=== PATIENT | female | born 1965 | race Caucasian/White ===

== ENCOUNTER 2019-06-23 10:50 | Outpatient (CLI) | payer OTHER, SELFPAY ==
--- NOTE | ~2019-06-23 | XR_ITS ---
XR chest 2V DATE: 06/23/2019 11:14 INDICATION: Cough for one week TECHNIQUE: PA and lateral views COMPARISON: 06/20/2011 PA and lateral chest FINDINGS: Mild bilateral hyperinflation. No pulmonary infiltrate or consolidation, pleural effusion o r pulmonary vascular congestion or pneumothorax is detected. Normal heart size. No hilar or mediastinal enlargement. Included skeletal structures are unremarkable. IMPRESSION: No active cardiopulmonary disease Reviewed, dictated and finalized at location B. SUPERVISOR
== END 2019-06-23 10:51 | disposition home or self-care (01) ==
LOC: ANHIMG 10:56
PROVIDERS: PCP Internal Medicine; Visit Provider Nurse Practitioner
DX: R05 Cough (principal)
CPT/HCPCS: 71046

== ENCOUNTER 2019-12-15 12:00 | Outpatient (CLI) | payer OTHER, SELFPAY ==
[2019-12-15 13:15] VITALS: PULSE 80; O2SAT 93
[2019-12-15 13:20] VITALS: PULSE 109; O2SAT 87
[2019-12-15 13:25] VITALS: PULSE 110; O2SAT 88
[2019-12-15 13:30] VITALS: PULSE 112; O2SAT 91
[2019-12-15 13:45] VITALS: PULSE 82; O2SAT 93
--- NOTE | 2019-12-15 13:50 | HOMEO2EVAL ---
Home Oxygen Evaluation RC: Home Oxygen (O2) Evaluation Start: 12/15/19 13:44 Freq: ONCE Status: Active Protocol: RPE Activity Type Activity Date Activity User E-Sign Co-Sign Detail Recorded Client Recorded Date Recorded By Document 12/15/19 13:15 [email or web address] [email or web address] 12/15/19 13:49 DJO Document 12/15/19 13:20 [email or web address] [email or web address] 12/15/19 13:49 DJO Document 12/15/19 13:25 [email or web address] [email or web address] 12/15/19 13:49 DJO Document 12/15/19 13:30 [email or web address] [email or web address] 12/15/19 13:49 DJO Document 12/15/19 13:45 [email or web address] [email or web address] 12/15/19 13:49 DJO 12/15/19 12/15/19 12/15/19 13:15 13:20 13:25 Home O2 Evaluation Test Phase Resting Exercise Exercise Oxygen Delivery Room Air Room Air Nasal Cannula Oxygen Flow Rate (L/min) 1 Pulse Oximetry (90-100 %) 93 87 L 88 L Pulse Rate (60-100 beats/min) 80 109 H 110 H Activity Tolerance Ambulation Distance (feet) Treatment Charges O2 Evaluation 12/15/19 12/15/19 13:30 13:45 Home O2 Evaluation Test Phase Exercise Resting Oxygen Delivery Nasal Cannula Room Air Oxygen Flow Rate (L/min) 2 Pulse Oximetry (90-100 %) 91 93 Pulse Rate (60-100 beats/min) 112 H 82 Activity Tolerance Good Ambulation Distance (feet) 1,000 Treatment Charges
--- NOTE | 2019-12-19 23:43 | P.PCNPFT_ITS ---
PFT Interpretation PFT Interpretation: DOS: 12/15/2019 REQUESTING: Ale Drummond NP REASON FOR TESTING: COPD PULMONARY FUNCTION TESTS Results are reproducible and reliable. Spirometry: FEV1 48% severely decreased, 1.33 L. FVC 70%, mildly decreased. FEV1% is reduced consistent with airflow obstruction. There is a non- statistically significant increase in flows after bronchodilator. Lung volumes: TLC 106%, normal. RV 164%, severely increased consistent with air trapping. Increased airway resistance 196%. Diffusion: DLCO moderately reduced 47%. Flow volume loop: Scooping of the expiratory limb. IMPRESSION: Severe obstructive ventilatory impairment with severe air trapping moderate diffusion impairment. Lack of response to bronchodilators should not preclude use if clinically indicated Ann Marie Neri MD
== END 2019-12-15 12:01 | disposition home or self-care (01) ==
PROVIDERS: PCP Internal Medicine; Visit Provider Nurse Practitioner
DX: J44.9 Chronic obstructive pulmonary disease, unspecified (principal); R94.2 Abnormal results of pulmonary function studies
CPT/HCPCS: 94060; 94618; 94726; 94729

== ENCOUNTER 2020-03-31 06:26 | Outpatient (CLI) | payer OTHER, SELFPAY ==
--- NOTE | 2020-04-28 03:42 | WPDHOMESLEEP ---
Sleep Study - Home Unattended Date of Study: 03/31/20 Ordering Provider: NICOLASA Dimas- Interpreting Physician: Ann Marie Neri MD Home Sleep Study Type: Apnea Link Air Height: 1.73 m Weight: 95.254 kg Body Mass Index: 31.9 Neck Circumference (inches): 14.5 [place]: 3 Reason for Sleep Study Difficulty falling asleep and waking during the night Sleep History Amada Hernandez is a 54 year old female who has difficulty falling asleep at night with numerous episodes of waking at night. She uses oxygen with sleep. 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 She snores loudly, and people constantly complain about it. She rarely wakes at night with heartburn, belching or coughing. She rarely awakens from feeling short of breath. She constantly has difficulty sleeping when she has a cold. She does not gasp for breath at night. She frequently has been told by others that she has breathing problems during sleep. She rarely sweats excessively at night. She occasionally notices her heart pounding or beating irregularly at night. She rarely falls asleep during the day, never involuntarily and never while driving. She does not have loss of muscle tone with strong emotion. She occasionally has daytime difficulties due to excessive sleepiness. She rarely feels paralyzed on waking or falling asleep. She rarely has vivid dreamlike scenes upon awakening or falling asleep. She is not afraid to go to sleep. She does not have nightmares. She occasionally remembers her dreams. She frequently has racing thoughts or mine. She rarely feels sad depressed or anxious. She occasionally has muscular tension. She rarely notices parts of her body jerking. She occasionally kicks at night. She constantly has crawling and aching feelings in her legs at night as well as leg pain during the night. She does not wake up with morning jaw pain. She does not grind her teeth at night. She occasionally has bothered by pain during the day and is awakened by pain at night. She constantly wakes up feeling stiff in the morning. She frequently wakes with sore achy muscles and pain in the neck and spine. She has headaches, palpitations, and memory problems. Normal bedtime is 12:00 midnight -1:00 a.m.. It takes 1 or 2 hours to fall asleep. She typically wakes 3 times during the night. 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 When she wakes up, she looks at the clock and goes back to sleep. She wakes at 10:00 in the morning. She estimates 6-7 hours of sleep at night. She denies taking naps. She is drowsy in the morning and she does not awaken feeling refreshed. Habits: Tobacco 1 ppd x 32 years, quit 2018. Caffeine 2 or 3 coffee per day. No alcohol or recreational drugs. [facility] Past Medical History Medical History (Updated 04/28/20 @ 04:29 by Ann Marie Neri MD) Allergic rhinitis Fmgkq-2-kvwvdvvvruj deficiency 06/23/2019 Arthritis R rotator cuff Chronic GERD COPD (chronic obstructive pulmonary disease) MAYA (dyspnea on exertion) Fatigue History of tobacco abuse Hypercholesterolemia Oxygen dependent with exertion and sleep Torn meniscus Surgical History Surgical History (Updated 04/28/20 @ 03:51 by Ann Marie Neri MD) History of carpal tunnel surgery History of orthopedic surgery History of tonsillectomy S/P hardware removal knee Status post surgical removal of both fallopian tubes Social History Social History (Updated 04/28/20 @ 03:55 by Ann Marie Neri MD) Smoking packs per day: 1 Smoking cigarettes per day: 20.0 Years smoked: 32 Smoking pack-years: 32.00 Smoking status: Former smoker Smoking end date: 06/25/17 Alcohol intake: never Substance use: never Living arrangements: with family Additional occupation/education comments: disabled [employer]
[2020-04-28 04:29] VITALS: BMI 31.9
== END 2020-03-31 06:27 | disposition home or self-care (01) ==
LOC: ANHCSM 06:26
PROVIDERS: PCP Internal Medicine; Visit Provider Nurse Practitioner
DX: G47.33 Obstructive sleep apnea (adult) (pediatric) (principal)
CPT/HCPCS: 95806

== ENCOUNTER → 2020-09-25 02:26 | Outpatient (CLI) | payer OTHER, SELFPAY ==
[2020-09-25 19:19] LABS: SARS-CoV-2 RNA PCR Negative
== END ==
PROVIDERS: PCP Internal Medicine; Visit Provider Internal Medicine Critical Care Medicine
DX: Z20.822 Contact with and (suspected) exposure to COVID-19 (principal)
CPT/HCPCS: C9803; U0003; U0005

== ENCOUNTER 2020-09-27 08:47 | Outpatient (CLI) | payer OTHER, SELFPAY ==
--- NOTE | 2020-10-18 19:14 | WPDSLEEPSTUD ---
Sleep Study Date of Study: 09/27/20 Ordering Provider: Ale Drummond, VAULT CLERK- Interpreting Physician: Ann Marie Neri MD Sleep Study Type: CPAP Titration Height: 1.73 m Weight: 96.162 kg Body Mass Index: 32.2 Neck Circumference (inches): 17 [place]: 2 Reason for Sleep Study Home sleep test 03/31/2020; mild obstructive sleep apnea, AHI 9, profound desaturation to 77% and 87 minutes, 16% of the test with saturation below 88%, mean saturation 90%. It is not clear if she wore oxygen during the test. The patient estimates 7-8 hours of sleep at night, however the recording time was 9 hours 29 minutes, longer than her normal sleep time. She now presents for CPAP titration. She has COPD and uses O2 at night. Sleep History Amada Hernandez is a 54 year old female who has difficulty falling asleep at night with numerous episodes of waking at night. She uses oxygen with sleep. 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 She snores loudly, and people constantly complain about it. She rarely wakes at night with heartburn, belching or coughing. She rarely awakens from feeling short of breath. She constantly has difficulty sleeping when she has a cold. She does not gasp for breath at night. She frequently has been told by others that she has breathing problems during sleep. She rarely sweats excessively at night. She occasionally notices her heart pounding or beating irregularly at night. She rarely falls asleep during the day, never involuntarily and never while driving. She does not have loss of muscle tone with strong emotion. She occasionally has daytime difficulties due to excessive sleepiness. She rarely feels paralyzed on waking or falling asleep. She rarely has vivid dreamlike scenes upon awakening or falling asleep. She is not afraid to go to sleep. She does not have nightmares. She occasionally remembers her dreams. She frequently has racing thoughts or mine. She rarely feels sad depressed or anxious. She occasionally has muscular tension. She rarely notices parts of her body jerking. She occasionally kicks at night. She constantly has crawling and aching feelings in her legs at night as well as leg pain during the night. She does not wake up with morning jaw pain. She does not grind her teeth at night. She occasionally has bothered by pain during the day and is awakened by pain at night. She constantly wakes up feeling stiff in the morning. She frequently wakes with sore achy muscles and pain in the neck and spine. She has headaches, palpitations, and memory problems. Normal bedtime is 12:00 midnight -1:00 a.m.. It takes 1 or 2 hours to fall asleep. She typically wakes 3 times during the night. This occurs in the middle of the night and environmental solutions engineer hours. When she wakes up, she looks at the clock and goes back to sleep. She wakes at 10:00 in the morning. She estimates 6-7 hours of sleep at night. She denies taking naps. She is drowsy in the morning and she does not awaken feeling refreshed. Habits: Tobacco 1 ppd x 32 years, quit 2017. Caffeine 2 or 3 coffee per day. No alcohol or recreational drugs. [facility] Past Medical History Medical History Allergic rhinitis Vgyqc-3-nlzsjmeothh deficiency 06/23/2019 Arthritis R rotator cuff Chronic GERD COPD (chronic obstructive pulmonary disease) MAYA (dyspnea on exertion) Fatigue History of tobacco abuse Hypercholesterolemia Oxygen dependent with exertion and sleep Torn meniscus Surgical History Surgical History History of carpal tunnel surgery History of orthopedic surgery History of tonsillectomy S/P hardware removal knee Status post surgical removal of both fallopian tubes Social History Social History
[2020-10-18 19:41] VITALS: BMI 32.2
== END 2020-09-27 08:48 | disposition home or self-care (01) ==
LOC: ANHCSM 08:52
PROVIDERS: PCP Internal Medicine; Visit Provider Nurse Practitioner
DX: G47.33 Obstructive sleep apnea (adult) (pediatric) (principal)
CPT/HCPCS: 95811

== ENCOUNTER 2021-03-08 09:01 | Outpatient (CLI) | payer OTHER, SELFPAY ==
--- NOTE | 2021-03-09 13:42 | WPDPFTINT ---
PFT Procedure Performed PFT Procedure Performed Spirometry with Pre/Post Bronchodilator Plethysmography (Lung Vol) Diffusing Cap (DLCO) Flow Vol Loop PFT Interpretation This is a pulmonary function test with pre and post-bronchodilator spirometry, plethysmography and diffusing capacity. The test was performed and results interpreted in accordance with the 2019 and 2005 ATS/ERS Task Force guidelines respectively using the Global Lung Function Initiative-2012 reference equations. Patient demonstrated good effort and cooperation. Reproducibility criteria were met. The quality of the pre bronchodilator spirometry maneuver was Grade A and post bronchodilator spirometry maneuver was Grade A. Findings: Spirometry: There is decreased maximal expiratory airflow at all lung volumes with concave expiratory flow tracing. Contour the inspiratory flow tracing is normal. The pre bronchodilator FVC is 2.91 L, 77% predicted. The pre bronchodilator FEV1 is 1.43 L, 48% predicted. The FEV1: FVC ratio is 49%. The post bronchodilator FVC is 2.89 L, representing 1% decrease. The post bronchodilator FEV1 is 1.55 L, representing a 9% increase. Plethysmography: The total lung capacity is 5.90 L, 104% predicted. The functional residual capacity is 3.64 L, 113% predicted. The residual volume is 2.98 L, 141% predicted. Diffusing capacity: The absolute diffusion capacity is 11.2, 47% predicted. The diffusing capacity corrected for alveolar volume is 2.92, 68% predicted. When compared to previous pulmonary function test on 12/15/2019 the post bronchodilator FEV1 is unchanged from 2.65 L to 2.89 L. The post bronchodilator FEV1 is unchanged from 1.38 L to 1.55 L. The total lung capacity is unchanged from 6.11 L to 5.90 L. The functional residual capacity is unchanged from 3.63 L to 3.64 L. The residual volume has decreased from 3.48 L to 2.98 L. The absolute diffusion capacity is unchanged from 12.0 to 11.2, the diffusing capacity corrected for alveolar volume is unchanged from 2.92 to 2.92. Impression: There is a severe obstructive abnormality without significant improvement after inhaling a single dose of albuterol. The increase in residual volume is consistent with air trapping from an obstructive abnormality. The absolute diffusing capacity is moderately decreased and remains mildly decreased when corrected for alveolar volume. When compared to the previous pulmonary function test on 12/15/2019 there has been A greater than anticipated time dependent decrease in residual volume and no change in the post bronchodilator FVC, post bronchodilator FEV1, total lung capacity, reduced functional residual capacity, absolute diffusion capacity or diffusing capacity corrected for alveolar volume. Clinical correlation is recommended.
== END 2021-03-08 09:02 | disposition home or self-care (01) ==
PROVIDERS: PCP Internal Medicine; Visit Provider Nurse Practitioner
DX: J44.9 Chronic obstructive pulmonary disease, unspecified (principal)
CPT/HCPCS: 94060; 94726; 94729

== ENCOUNTER 2021-07-02 14:00 | Outpatient (CLI) | payer OTHER, SELFPAY ==
--- NOTE | ~2021-07-02 | CT_ITS ---
EXAMINATION: CT lung screening DATE: 07/02/2021 14:17 INDICATION: Personal history of nicotine dependence, prior smoker with 30 to pack year history TECHNIQUE: Computed tomography (CT) of the chest was performed without intravenous contrast. The dose -length product (DLP) was 153.60 mGy-cm. 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 COMPARISON: None FINDINGS: There is severe upper lobe predominant emphysema. No suspicious pulmonary nodules are ident ified. The lungs are free of acute opacities. There is no pleural effusion or pneumothorax. No pathol ogically enlarged thoracic lymph nodes are identified. The heart size is normal. IMPRESSION: 1. Lung-RADS category 1: Negative. Continue annual screening with noncontrast low-dose chest CT in 12 months. Reviewed, dictated and finalized at location A. GREASER IMPRESSION: 1. Lung-RADS category 1: Negative. Continue annual screening with noncontrast l ow-dose chest CT in 12 months.
== END 2021-07-02 14:01 | disposition home or self-care (01) ==
LOC: ANHIMG 14:04
PROVIDERS: PCP Internal Medicine; Visit Provider Nurse Practitioner
DX: Z12.2 Encounter for screening for malignant neoplasm of respiratory organs (principal); Z87.891 Personal history of nicotine dependence
CPT/HCPCS: 71271

== ENCOUNTER 2021-10-20 17:55 | Emergency (ER) | payer OTHER, SELFPAY ==
[2021-10-20 18:01] VITALS: BP 120/66; PULSE 84; RESP 20; TEMP 36.6; O2SAT 99
--- NOTE | 2021-10-20 18:15 | ED.GENADULT ---
HPI - General Adult General Chief complaint: Skin/Abscess/Foreign Body Stated complaint: SWOLLEN LYMPH NODE Source: patient Mode of arrival: ambulatory Limitations: no limitations History of Present Illness HPI narrative: Patient presents for evaluation of redness, itching and irritation to the left side of her neck for the past three days. She does not remember experiencing an insect bite. No known precipitating event. No fever, chills, nausea, vomiting, drainage from the area. She is not diabetic. She tried applying some alcohol to the area without improvement in her symptoms thereafter. No additional complaints or concerns. Related Data Home Medications Medication Instructions Recorded Confirmed albuterol sulfate 90 mcg/actuation inh inhalation 10/20/21 aerosol inhaler atorvastatin 20 mg tablet tablet 10/20/21 fluticasone fur. 100 mcg-umeclid ea inhalation 10/20/21 62.5 mcg-vilant 25 mcg inhalat.powder (Trelegy Ellipta) nicotine (polacrilex) 4 mg buccal ea 10/20/21 mini lozenge omeprazole 40 mg capsule,delayed cap 10/20/21 release Allergies Allergy/AdvReac Type Severity Reaction Status Date / Time cephalexin AdvReac Nausea and Verified 10/20/21 18:25 Vomiting Review of Systems Review of Systems: CONSTITUTIONAL: Denies fever, chills, or sweats. EYES: Denies visual changes, redness, or discharge. ENT: Denies rhinorrhea, congestion, sore throat, or otalgia. CARDIOVASCULAR: Denies chest pain, palpitations, or edema. RESPIRATORY: Denies cough or dyspnea. GASTROINTESTINAL: Denies abdominal pain, nausea, vomiting, or diarrhea. GENITOURINARY: Denies dysuria or hematuria. SKIN: Reports area of redness, irritation and itching to left lateral neck. MUSCULOSKELETAL: Denies back pain, joint pain, or myalgia. NEUROLOGIC: Denies headache, numbness, dizziness, or weakness. PSYCHIATRIC: Denies anxiety or depression. [facility] Past Medical History Medical History Allergic rhinitis Egzia-0-kdfcwulieqk deficiency 06/23/2019 Arthritis R rotator cuff Chronic GERD COPD (chronic obstructive pulmonary disease) MAYA (dyspnea on exertion) Fatigue History of tobacco abuse Hypercholesterolemia Oxygen dependent with exertion and sleep Torn meniscus Surgical History Surgical History History of carpal tunnel surgery History of orthopedic surgery History of tonsillectomy S/P hardware removal knee Status post surgical removal of both fallopian tubes Family History Family History Father Bubpf-4-epdgssbkwfb deficiency Social History Social History (Updated 10/20/21 @ 18:27 by NICOLASA Montiel, ) Smoking packs per day: 1 Smoking cigarettes per day: 20.0 Years smoked: 32 Smoking pack-years: 32.00 Smoking status: Former smoker Smoking end date: 06/25/17 Alcohol intake: never Substance use: never Living arrangements: with family Additional occupation/education comments: disabled Gender identity (if verbalized by the patient): Male Sexual Orientation (if Verbalized by the Patient): Straight or Heterosexual Spiritual care concerns: No Exam Narrative: GENERAL: Well-appearing, well-nourished, and in no acute distress. HEAD: Normocephalic, atraumatic. EYES: PERRLA and EOMI. ENT: Nares clear, no rhinorrhea or epistaxis. Mucous membranes moist. Oropharynx without tonsillar hypertrophy exudate or other lesions. Bilateral TMs pearly clemente nonbulging NECK: Supple. No adenopathy or masses. No carotid bruits or JVD CHEST: Clear to auscultation. No respiratory distress. No wheezes rales or rhonchi. O2 at 2 L NC HEART: Regular rate and rhythm. No murmur heard. Normal peripheral pulses. ABDOMEN: Soft, nontender, nondistended, normal active bowel sounds. EXTREMITIES: Normal range of motion. No ed
== END 2021-10-20 18:24 | disposition home or self-care (01) ==
PROVIDERS: Emergency Provider Nurse Practitioner; PCP Internal Medicine
DX: L30.9 Dermatitis, unspecified (principal); Z87.891 Personal history of nicotine dependence; M19.90 Unspecified osteoarthritis, unspecified site; K21.9 Gastro-esophageal reflux disease without esophagitis; J44.9 Chronic obstructive pulmonary disease, unspecified; E78.00 Pure hypercholesterolemia, unspecified
CPT/HCPCS: 99213; G0463

== ENCOUNTER 2021-12-13 16:14 | Emergency (ER) | payer OTHER, SELFPAY ==
--- NOTE | ~2021-12-13 | XR_ITS ---
XR hip RT 2V w AP pelvis DATE: 12/13/2021 16:54 INDICATION: Right hip pain, subluxation, with relocation TECHNIQUE: AP pelvis. AP and lateral views of right hip COMPARISON: None FINDINGS: There is levoscoliosis of the lumbar spine. The pubic symphysis and sacroiliac joints are intact. No pelvic fracture or bone destruction is detec eileen. Hip joint spaces are symmetric and relatively well preserved. There is mild right hip osteoarthritis. No fracture or dislocation, avascular necrosis or bone destruction of the right hip is detected. IMPRESSION: Mild right hip osteoarthritis Reviewed, dictated and finalized at location B.
[2021-12-13 16:18] VITALS: BP 145/71; PULSE 90; RESP 18; TEMP 36.3; O2SAT 97
--- NOTE | 2021-12-13 17:00 | ED.LOWEXIN ---
HPI - Extremity Injury (Lower) General Chief Complaint: Extremity Injury, Lower Stated Complaint: right hip pain - possible spontaneous dislocation? Time Seen by Provider: 12/13/21 16:22 History of Present Illness HPI Narrative: Patient is a 56-year-old female who presents ER with right hip pain. Yesterday patient went to stretch her leg while she was in a seated position she informed external rotation of the hip then extended out at the knee. She had sudden onset pain and could not get up without assistance. She then tried to ambulate to a couch with her 's help and she felt 2 pops and her pain went away. No numbness or tingling associated with it. No additional trauma. Has been able to ambulate without issue. Related Data Home Medications Medication Instructions Recorded Confirmed albuterol sulfate 90 mcg/actuation 2 inh inhalation PRN PRN Shortness 10/20/21 10/20/21 aerosol inhaler Of Breath atorvastatin 20 mg tablet 1 tablet PO DAILY 10/20/21 10/20/21 fluticasone fur. 100 mcg-umeclid 1 ea inhalation BID 10/20/21 10/20/21 62.5 mcg-vilant 25 mcg inhalat.powder (Trelegy Ellipta) nicotine (polacrilex) 4 mg buccal 1 ea PO Q6H 10/20/21 10/20/21 mini lozenge omeprazole 40 mg capsule,delayed 1 cap PO DAILY 10/20/21 10/20/21 release Allergies Allergy/AdvReac Type Severity Reaction Status Date / Time cephalexin AdvReac Nausea and Verified 12/13/21 16:16 Vomiting Review of Systems Review of Systems: All systems reviewed & are unremarkable except as noted in HPI and below Musculoskeletal: Musculoskeletal: Denies back pain, Reports arthralgias, Denies joint swelling and Denies muscle cramps Neurologic: Denies focal weakness and Denies numbness PMFSH Past Medical History Medical History Allergic rhinitis Byrow-3-lxnvnenwwwh deficiency 06/23/2019 Arthritis R rotator cuff Chronic GERD COPD (chronic obstructive pulmonary disease) MAYA (dyspnea on exertion) Fatigue History of tobacco abuse Hypercholesterolemia Oxygen dependent with exertion and sleep Torn meniscus Surgical History Surgical History History of carpal tunnel surgery History of orthopedic surgery History of tonsillectomy S/P hardware removal knee Status post surgical removal of both fallopian tubes Family History Family History Father Osbal-9-ydxkjpqvnia deficiency Social History Social History (Updated 10/20/21 @ 18:27 by NICOLASA Montiel, ) Smoking packs per day: 1 Smoking cigarettes per day: 20.0 Years smoked: 32 Smoking pack-years: 32.00 Smoking status: Former smoker Smoking end date: 06/25/17 Alcohol intake: never Substance use: never Additional occupation/education comments: disabled Gender identity (if verbalized by the patient): Male Sexual Orientation (if Verbalized by the Patient): Straight or Heterosexual Spiritual care concerns: No Exam Narrative: GENERAL: Well-appearing, well-nourished, and in no acute distress. HEAD: Normocephalic, atraumatic. EXTREMITIES: Right hip with normal range of motion and no crepitus/clicking palpated. Tender at the right greater trochanter. Normal range of motion and no tenderness of the left hip. NEURO: Alert and oriented x3. PSYCH: Normal mood and affect. Course Course Emergency Course: Patient resting comfortably. Discussed with Dr. Ledesma who believes patient likely had discomfort related to a labral tear given appearance of hip on x-ray. Patient educated on this and will be discharged with anti-inflammatories. Vital Signs Vital signs: Vital Signs Temperature 97.3 F L 12/13/21 16:18 Pulse Rate 90 12/13/21 16:18 Respiratory Rate 18 12/13/21 16:18 Blood Pressure 145/71 H 12/13/21 16:18 Pulse Oximetry 97 12/13/21 16:18 Oxygen Delivery
== END 2021-12-13 18:04 | disposition home or self-care (01) ==
LOC: ANHED 17:24
PROVIDERS: Emergency Provider Emergency Medicine; PCP Internal Medicine
DX: S73.101A Unspecified sprain of right hip, initial encounter (principal); J44.9 Chronic obstructive pulmonary disease, unspecified; E78.00 Pure hypercholesterolemia, unspecified; K21.9 Gastro-esophageal reflux disease without esophagitis; M19.011 Primary osteoarthritis, right shoulder; Z90.79 Acquired absence of other genital organ(s); Z87.891 Personal history of nicotine dependence; M16.11 Unilateral primary osteoarthritis, right hip; X50.9XXA Other and unspecified overexertion or strenuous movements or postures, initial encounter
CPT/HCPCS: 73502; 99283

== ENCOUNTER 2025-05-04 17:06 | Emergency (ER) | payer MEDICARE, OTHER, SELFPAY ==
--- NOTE | ~2025-05-04 | XR_ITS ---
[id number] INDICATION: pain COMPARISON: None FINDINGS: 2 views of the left knee demonstrate no acute fracture or dislocation. Large suprapatellar joint effusion is noted. IMPRESSION: No acute fracture or dislocation. There is a large suprapatellar joint effusion. Reviewed, dictated and finalized at location S. PROCESSING SUPERVISOR
[2025-05-04 17:24] VITALS: BP 112/69; PULSE 110; RESP 16; TEMP 36.3; O2SAT 96
--- OUTSIDE RECORDS SUMMARY | 2025-05-04 18:29 | XMS_ITS | Encounter Summary ---
Author Organization [facility] Address [address] [place] [address] Care Team Providers Care [employer] Testing [employer] Leader Name Role Phone Matthew Perkins MD Primary Care Provider [phone] Encounter Details Date Type Department Care Team (Latest Contact Info) Description 12/06/2004 Outpatient Historical [facility] Brandan Sherwood MD [address] [place] [id number] SUPERVIS OTHER NORMAL PREG (Primary Dx) Social History Tobacco Use Types Packs/Day Years Used Date Smoking Tobacco: Never Assessed Comments Unknown Sex and Gender Information Value Date Recorded Sex Assigned at Not on file 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
--- OUTSIDE RECORDS SUMMARY | 2025-05-04 18:29 | XMS_ITS | Encounter Summary ---
Author Organization [facility] Address Count includes the [facility] [place] [address] Care Team Providers Care Equipment Washer Name Role Phone Lissett COOPER MD, Brandan Etienne Primary Care Provider Encounter Details Date Type Department Care Team (Late Contact Info) Description 05/10/2024 Content Circleshart Message Enc [facility] Multispecialty Care - [facility] [address] [facility] [place] [address] Hi West MD [address] [place], [place] [address]vd [address] [place] [address] I have a bad cough & congestion Social History Tobacco Use Types Packs/Day Years Used Date Smoking Tobacco: Former Cigarettes 2016 Smokeless Tobacco: Never Alcohol Use Standard Drinks/Week Comments Never 0 (1 standard drink = 0.6 oz pur e alcohol) PHQ-2 Answer Date Recorded Patient Health Questionnaire-2 Score 0 11/03/2023 Comments No Sex and Gender Information Value Date Recorded Sex Assigned at Female 06/07/2024 4:05 PM SHELL SHOP SUPERVISOR Legal Sex Female 5:47 PM CDT Gender Identity Female 07/21/2024 2:39 PM SHELL SHOP SUPERVISOR Sexual Orientation Straight 07/21/2024 2: 39 PM SHELL SHOP SUPERVISOR documented as of this encounter Plan of Treatment Upcoming Encounters Date Type Department Care Team (Late st Contact Info) Description 05/17/2025 1:00 PM SHELL SHOP SUPERVISOR Office Visit [facility] Multispecialty Care - [facility] [address] [facility], [address] [place] [address] Leandro Vo MD 3 [place] [address] 06/28/2025 2:40 PM SHELL SHOP SUPERVISOR Office Visit [facility] - [place] [address] [place] [phone] Brandan Galeana II, MD [address] [place] [address] 02/24/2026 10:45 AM CDT Office Visit [facility]-[address] [phone] Ric Hightower MD [address] [facility] [address] [place], [place] [id number] documented as of this encounter Visit Diagnoses Not on filedocumented in this encounter Additional Health Concerns Assessment Noted Time PHQ-9 Depression Total Score: 6 11/03/19 24 2:09 PM CDT documented as of this encounter Care Teams Equipment Washer Relationship Specialty Start Date End Date Brandan Galeana II, MD [address] [place] [address] PCP - General 04/17/23 documented as of this encounter
--- OUTSIDE RECORDS SUMMARY | 2025-05-04 18:29 | XMS_ITS | Encounter Summary ---
Author Organization [facility] Address [address] [place] [address] Care Team Providers Care Clerk Checker Name Role Phone Lissett COOPER MD, Brandan Etienne Primary Care Provider Encounter Details Date Type Department Care Team (Late st Contact Info) Description 05/14/2024 [employer] Message Enc [facility] - [place] [address] [place] [phone] Brandan Galeana II, MD [address] [place] [address] Horrible cough & congestion since Social History Tobacco Use Types Packs/Day Years Used Date Smoking Tobacco: Former Cigarettes 1 2016 Smokeless Tobacco: Never Alcohol Use Standard Drinks/Week Comments Never 0 (1 standard drink = 0.6 oz pur e alcohol) PHQ-2 Answer Date Recorded Patient Health Questionnaire-2 Score 0 11/03/2023 Comments No Sex and Gender Information Value Date Recorded Sex Assigned at Female 06/07/2024 4:05 PM PERIOPERATIVE ASSISTANT Legal Sex Female 5:47 PM CDT Gender Identity Female 07/21/2024 2:39 PM PERIOPERATIVE ASSISTANT Sexual Orientation Straight 07/21/2024 2: 39 PM PERIOPERATIVE ASSISTANT documented as of this encounter Plan of Treatment Upcoming Encounters Date Type Department Care Team (Late st Contact Info) Description 05/17/2025 1:00 PM PERIOPERATIVE ASSISTANT Office Visit [facility] Multispecialty Care - [facility] [address] [facility], [address] [place] [address] Leandro Vo MD 3 [place] [address] 06/28/2025 2:40 PM PERIOPERATIVE ASSISTANT Office Visit [facility] Family [facility] - [place] [address] [place] [phone] Brandan Galeana II, MD [address] [place] [address] 02/24/2026 10:45 AM CDT Office Visit [facility]-[address] [phone] Ric Hightower MD Three [facility] [address] [place] [address] documented as of this encounter Visit Diagnoses Not on filedocumented in this encounter Additional Health Concerns Assessment Noted Time PHQ-9 Depression Total Score: 6 11/03/19 24 2:09 PM CDT documented as of this encounter Care Teams Clerk Checker Relationship Specialty Start Date End Date Brandan Galeana II, MD [address] [place] [address] PCP - General 04/17/23 documented as of this encounter
--- OUTSIDE RECORDS SUMMARY | 2025-05-04 18:29 | XMS_ITS | Encounter Summary ---
Author Organization [facility] Address 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
--- OUTSIDE RECORDS SUMMARY | 2025-05-04 18:29 | XMS_ITS | Encounter Summary ---
Author Organization [facility] Address [address] [place] [address] Care Team Providers Care Payer Specialist Name Role Phone Matthew Perkins MD Primary Care Provider [phone] Encounter Details Date Type Department Care Team (Late st Contact Info) Description 01/17/2005 Outpatient Historical [facility] Maternal and Ground Floor [address] [place] [address] Kaleigh Tristan MD [address] [place] [address] Social History Tobacco Use Types Packs/Day Years Used Date Smoking Tobacco: Never Assessed Comments Unknown Sex and Gender Information Value Date Recorded Sex Assigned at Not on file Legal Sex 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
--- OUTSIDE RECORDS SUMMARY | 2025-05-04 18:29 | XMS_ITS | Encounter Summary ---
Author Organization [facility] Address [address] [place] [address] Care Team Providers Care Drama Director Name Role Phone Matthew Perkins MD Primary Care Provider [phone] Encounter Details Date Type Department Care Team (Late st Contact Info) Description 02/14/2005 Outpatient Historical [facility] Maternal and Ground Floor [address] [place] [address] Kaleigh Tristan MD [address] [place] [address] Social History Tobacco Use Types Packs/Day Years Used Date Smoking Tobacco: Never Assessed Comments Unknown Sex and Gender Information Value Date Recorded Sex Assigned at Not on file 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
--- OUTSIDE RECORDS SUMMARY | 2025-05-04 18:29 | XMS_ITS | Encounter Summary ---
Author Organization [facility] Address [address] [place] [address] Care Team Providers Care Rn Internship Name Role Phone Matthew Perkins MD Primary Care Provider [phone] Encounter Details Date Type Department Care Team (Latest Contact Info) Description 01/17/2005 Outpatient Historical [facility] Brandan Sherwood MD [address] [facility] [address] [place] [phone] SCREENING NEC (Primary Dx) Social History Tobacco Use Types Packs/Day Years Used Date Smoking Tobacco: Never Assessed Comments Unknown Sex and Gender Information Value Date Recorded Sex Assigned at Not on file Legal Sex Female 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
--- OUTSIDE RECORDS SUMMARY | 2025-05-04 18:30 | XMS_ITS | Data Portability ---
Author Organization [place] - [employer], Main Office Address [address] [place] [address] Care Team Providers Care Pr Manager Name Role Phone DEMETRI GARCIA Primary Care Provider DEMETRI GARCIA Referring Provider Assessment Encounter Date Assessment Date Assessment LastModified by Organization Details LastModified Time 11/27/2022 11/27/2022 57-year-old female returns to the clinic concerning recurrence of ganglion cyst over the flexor tendons in her right hand. We previously injected a ganglion cyst over the flexor tendon of the right long finger back in January of 2022, but she has since had recurrence of this ganglion cyst as well as developing a cyst over the right ring finger as well. We discussed treatment options including a repeat corticosteroid injection into the cyst. Patient is agreeable to this plan, using standard technique and sterile protocol 1 cc of Kenalog 1 cc ropivacaine was injected into the cysts of the right long and right ring fingers. she may follow-up as needed if she has any recurrence of the cyst which at that time we would consider repeat and final corticosteroid injection versus discussion of surgical excision. [email or web address] Not available 11/27/2022 17:14:49 Plan of Treatment Reminders Order Date Submit Date Provider Last Modified By Organization Details Last Modified Time Details Appointments None recorded. Lab None recorded. Referral None recorded. Procedures injection/a spiration joint/bursa (PROC) - in office procedure, administere d by provider 2022 023 [email or web address] 3 In-Office Order, Internal Use Only DO Not Attach Compendium DO Not Attach Compendium, Do Not Delete/merge, [id number] 16:24:15 Surgeries None recorded. Imaging None recorded. Medication Orders Kenalog 10 mg/mL suspension for injection [email or web address]/[facility]acy #[id number], [address], [place], [address], 3 16:45:12 ropivacaine (PF) 5 mg/mL (0.5 %) injection solution 2022 023 [email or web address] [facility]/Ph[facility]acy #[id number], [address], [place], [address], 3 16:45:12 Patient TargetsNo targets recorded. Patient InstructionsNo instructions recorded. Reason for Referral None Reported. Results Created Date Observation Date Name Description Value Unit Range Abnormal Flag Note LastModifiedBy Organization Detail LastModifiedTime 12/18/19 XR, hip + pelvi s, unila teral , 2 or 3 view No observ ation record ed. [id number] Not Available 07/17/2022 02:53:56 01/30/20 22 01/29/2022 XR, hand, 3 or more view No observ ation record ed. [id number] [address], [place], [address], 07/17/2022 02:53:56 Result Notes None recorded. Problems Name Problem SNOMED Code Status Onset Date Resolution Date Notes Provider Name and Address Organization Details Recorded Time Acute bronchiti s 40688055 Active Not Available [facility] 3 02:45:40 Backache 648710167 Completed Not Available [facility] 3 02:45:41 Gastroent eritis 67679050 Active Not Available [facility] 3 02:45:41 Edema 284695159 Completed Not Available [facility] 3 02:45:41 Shoulder joint pain 038727190 Active Not Available [facility] 3 02:45:41 Knee pain Completed Not Available [facility] 3 02:45:41 Bronchiti s 28613900 Completed Not Available [facility] 3 02:45:41 Sinusitis 23166607 Completed Not Available [facility] 3 02:45:41 Adhesive capsuliti s of shoulder 456151481 Active [facility] Available [facility] 3 02:45:42 Dizziness 615965610 Completed Not Available [facility] 3 02:45:42 Pharyngit is 802241813 Completed [facility] 3 02:45:42 Wound 190233071 Completed Not Available [facility] 3 02:45:42 Upper respirato ry infection 65936712 Completed Not Available [facility] 3 02:45:42 Carpal tunnel syndrome 88199419 Active Not Available [facility] 3 02:45:42 Pain in limb 98261338 Active Not Available [facility] 3 02:45:43 Moderate chronic obstructi ve pulmonary disease 621773968 Active 2018 Not Available [facility] 3 02:45:41 Dyspnea on exertion 48468508 Active 2018 Not Available [facility] 3 02:45:42 Allergic rhinitis 18829631 Active 2018 Not Available [facility] 3 02:45:42 Fatigue 02132765 Active 2018 Not Available [facility] 3 02:45:43 Body mass index 30+ - obesity 372088762 Active 2018 Not Available [facility] 3 02:45:41 Abdominal pain 50688760 Active 2018 Not Available [facility] 3 02:45:41 Vitamin D deficienc y 21154861 Active 2018 Not Available [facility] 3 02:45:41 Hyperlipi demia 65655226 Active 2018 Not Available [facility] 3 02:45:42 Liver cyst 63044067 Active 2018 Not Available [facility] 3 02:45:43 Alpha-1-a ntitrypsi n deficienc y 40251360 Active 2019 Not Available [facility] 3 02:45:41 Obstructi ve sleep apnea syndrome 37190245 Active 2020 Not Available [facility] 3 02:45:42 Dependenc e on supplemen kathy oxygen 62019332018 7 Active 2020 Not Available [facility] 3 02:45:43 Immunoglo bulins outside reference range 756667705 Active 2021 Not Available [facility] 3 02:45:41 Pain of right hip joint 81182868706 9102 Active 2021 Not Available [facility] 3 02:45:41 Acute exacerbat ion of chronic obstructi ve pulmonary disease 735918073 Active 2021 Not Available [facility] 3 02:45:41 Pain of right hand 67400113104 9109 Active 2022 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 Procedures Surgical History Date Name Laterality Status Provider Name and Address Organization Details Recorded Time tonsilectomy/ad enoids completed Not Available [facility] 07/17/2022 02:40:14 Meniscal trnspl knee w/scpe completed Not Available [facility] 07/17/2022 02:40:14 Carpal tunnel surgery completed Not Available [facility] 07/17/2022 02:40:14 procedure on elbow completed Not Available [facility] 07/17/2022 02:40:14 Imaging Results None recorded. Procedure Notes None recorded. Medical Equipment None Reported. Allergies Allergen ID Allergen Name Allergen Category Reaction Reaction Severity Criticality Documentation Date Start Date Code Code System Note Provider Name and Address Organization Details Recorded Time 4112 nitrofura ntoin medicatio n Not available Not available Not available 07/17/2022 7454 RxNorm Not Available [facility] 3 02:53:30 Medications Name Sig Start Date Stop Date Status Note LastModified by Organization Details LastModified Time cyclobenzap rine 10 mg tablet Take 1 tablet 3 times a day by oral route for 7 days. active Not Available Not Available No t Available amoxicillin 500 mg capsule Take 1 capsule every 8 hours by oral route as directed for 7 days. active Not Available Not Available No t Available prednisone 10 mg tablet Take by oral route. active Not Available Not Available No t Available doxycycline hyclate 100 mg capsule TAKE 1 CAPSULE BY MOUTH TWICE A DAY 01/08 completed Not Available Not Available Not Available atorvastati n 20 mg tablet TAKE 1 TABLET BY MOUTH EVERY DAY active Not Available Not Available No t Available nicotine 14 mg/24 hr daily transdermal patch APPLY 1 PATCH EVERY DAY BY TRANSDERM AL active Not Available Not Available No t Available albuterol sulfate 2.5 mg/3 mL (0.083 %) solution for nebulizatio n INHALE 3 ML BY NEBULIZAT ION 3 TIMES A DAY DIRECTED FOR 30 DAYS. active Not Available Not Available No t Available azithromyci n 250 mg tablet Take 2 TABLET EVERY DAY by oral route for 1 day. then 1 tab a day for 4 days 08/11 completed Not Available Not Available Not Available ibuprofen 800 mg tablet TAKE 1 TABLET BY MOUTH EVERY 8 HOURS NEEDED FOR PAIN 03/06 completed Not Available Not Available Not Available metronidazo le 0.75 % (37.5 mg/5 gram) vaginal gel active Not Available Not Available Not Available ondansetron HCl 4 mg tablet Take 1 tablet every 6 hours by oral route as needed. active Not Available Not Available No t Available prednisone 20 mg tablet Take 3 tablets every day by oral route in the morning for 5 days. active Not Available Not Available No t Available spironolact one 100 mg tablet 06/03 completed Not Available Not Available Not Available acetaminoph en 300 mg-codeine 30 mg tablet active Not Available Not Available Not Available sulfamethox azole 800 mg-trimetho prim 160 mg tablet TAKE 1 TABLET BY MOUTH 2 TIMES DAILY WITH FOOD UNTIL GONE 10/18 completed Not Available Not Available Not Available omeprazole 40 mg capsule,del ayed release TAKE 1 CAPSULE BY MOUTH EVERY DAY active Not Available Not Available No t Available tramadol 50 mg tablet Take 1 tablet 3 times a day by oral route as needed. active Not Available Not Available No t Available oxycodone-a cetaminophe n 5 mg-325 mg tablet active Not Available Not Available No t Available famotidine 20 mg tablet 05/10 completed Not Available Not Available Not Available malathion 0.5 % lotion active Not Available Not Available Not Available Kenalog 10 mg/mL suspension for injection in office 2022 active [facility]: [phone] Not Available Not Available Not Available doxycycline monohydrate 100 mg capsule 02/03 completed Not Available Not Available Not Available bisacodyl 10 mg rectal suppository REMOVE FROM WRAPPER AND INSERT 1 SUPPOSITO RY IN RECTUM DIRECTED BY . 08/18 completed Not Available Not Available Not Available cephalexin 500 mg capsule active Not Available Not Available Not Available nicotine 21 mg/24 hr daily transdermal patch Apply 1 patch every day by transderm al route for 14 days. active Not Available Not Available No t Available omeprazole 20 mg capsule,del ayed release Take 1 capsule every day by oral route. active Not Available Not Available No t Available Banophen 25 mg capsule TAKE 1 TO 2 CAPSULES BY MOUTH EVERY 4 - 6 HOURS NEEDED FOR ALLERGIC REACTION 01/08 completed Not Available Not Available Not Available diclofenac sodium 75 mg tablet,amirah yed release TABLET BY MOUTH TWICE A DAY WITH FOOD 05/10 completed Not Available Not Available Not Available mupirocin 2 % topical ointment 09/01 completed Not Available Not Available Not Available metoprolol succinate ER 25 mg tablet,exte nded release 24 hr TAKE 1/2 TABLET BY MOUTH EVERY DAY active Not Available Not Available No t Available ergocalcife rol (vitamin D2) 1,250 mcg (50,000 unit) capsule TAKE ONE CAPSULE BY MOUTH ONE TIME PER WEEK 05/10 completed Not Available Not Available Not Available ibuprofen 600 mg tablet 05/10 completed Not Available Not Available Not Available levofloxaci n 500 mg tablet Take 1 tablet every 24 hours by oral route for 7 days. 02/24 completed Not Available Not Available Not Available methylpredn isolone 4 mg tablets in a dose pack as directed 08/11 completed Not Available Not Available Not Available albuterol sulfate HFA 90 mcg/actuati on aerosol inhaler TAKE 2 PUFFS BY MOUTH EVERY 4 HOURS NEEDED 2022 active Not Available Not Available Not Avai lable ondansetron 4 mg disintegrat ing tablet 05/10 completed Not Available Not Available Not Available fluticasone propionate 50 mcg/actuati on nasal spray,suspe nsion Inhale 2 sprays every day by intranasa l route in the evening. active Not Available Not Available No t Available loratadine 10 mg tablet Take 1 tablet every day by oral route as directed for 30 days. 05/10 completed Not Available Not Available Not Available naproxen 500 mg tablet Take 1 tablet(s) 2 TIMES A DAY by oral route with food 05/10 completed Not Available Not Available Not Available amoxicillin 875 mg-potassiu m clavulanate 125 mg tablet Take 1 tablet twice a day by oral route as directed for 7 days. active Not Available Not Available No t Available nicotine 7 mg/24 hr daily transdermal patch Apply 1 patch every day by transderm al route for 14 days. active Not Available Not Available No t Available Pneumovax-2 3 25 mcg/0.5 mL injection syringe TO BE ADMINISTE RED BY PHARMACIS T FOR IMMUNIZAT ION 05/10 completed Not Available Not Available Not Available escitalopra m 10 mg tablet TAKE 1 TABLET BY MOUTH DAILY active Not Available Not Available No t Available nicotine (polacrilex ) 4 mg buccal lozenge Take 1 tablet every 6 hours by oral route as directed for 30 days. active Not Available Not Available No t Available nicotine (polacrilex ) 2 mg buccal lozenge DISSOLVE 1 TABLET IN THE MOUTH DIRECTED ON PACKAGE active Not Available Not Available No t Available cyclobenzap rine 5 mg tablet active Not Available Not Available Not Available nitrofurant oin monohydrate /macrocryst als 100 mg capsule TAKE 1 CAPSULE BY MOUTH EVERY 12 HOURS 03/06 completed Not Available Not Available Not Available Symbicort 160 mcg-4.5 mcg/actuati on HFA aerosol inhaler TAKE 2 PUFFS BY MOUTH TWICE A DAY 10/29 completed Not Available Not Available Not Available diclofenac 1 % topical gel APPLY 2 GRAMS TO THE AFFECTED AREA(S) ON THE SKIN 3 TIMES DAILY active Not Available Not Available No t Available GaviLyte-N 420 gram oral solution 08/18 completed Not Available Not Available Not Available ropivacaine (PF) 5 mg/mL (0.5 %) injection solution in office 2022 active [facility] [phone] Not Available Not Available Not Available Fluvirin 8479-9131(P F) 45 mcg (15 mcg x3)/0.5 mL intramuscul ar syringe active Not Available Not Available N ot Available Anoro Ellipta 62.5 mcg-25 mcg/actuati on powder for inhalation INHALE 1 PUFF DAILY active Not Available Not Available No t Available Epiduo Forte 0.3 %-2.5 % topical gel with pump 11/27 completed Not Available Not Available Not Available nicotine (polacrilex ) 4 mg buccal mini lozenge DISSOLVE 1 LOZENGE IN MOUTH EVERY 6 HOURS DIRECTED FOR 30 DAYS PER PACKAGE INSTRUCTI ONS active Not Available Not Available No t Available oxygen 2L w/ activity 2019 active Not Available Not Available Not Avai lable Trelegy Ellipta 100 mcg-62.5 mcg-25 mcg powder for inhalation INHALE 1 PUFF EVERY DAY BY MOUTH DIRECTED FOR 30 DAYS active Not Available Not Available No t Available EC-Naproxen 500 mg tablet,amirah yed release TAKE 1 TABLET BY MOUTH TWICE A DAY active Not Available Not Available No t Available Flucelvax Quad 60 mcg (15 mcg x 4)/0.5 mL intramuscul ar susp PHARMACY ADMINISTE RED 05/10 completed Not Available Not Available Not Available COVID-19 At-Home Test kit FOLLOW INSTRUCTI ONS INCLUDED WITH THE PACKAGE. active Not Available Not Available No t Available Vitals Date Recorded Body height Body mass index (BMI) Body weight Provider Name and Address Organization Details Last Updated DateTime 11/27/2022 172.72 cm 31.6 kg/m2 45376.21 g Malissa Stevenson CNA [facility] [employer] 11/27/2022 15:51:17 Date Recorded Body height Body temperature Body weight Heart rate Oxygen saturation Inhaled oxygen flow rate Systolic And Diastolic Provider Name and Address Organization Details Last Updated DateTime 3 172.72 cm 96.8 [degF] 595199. 1 g 91 /min 95 % 2 L/min 110/72 mm[Hg] Bruna Herr RN [facility] [employer] 3 14:08:01 Date Recorded Body mass index (BMI) Body height Body weight Provider Name and Address Organization Details Last Updated DateTime 01/14/2022 35.1 kg/m2 172.72 cm 186690.84 g Not Available [employer] 07/17/2022 02:42:00 Date Recorded Body mass index (BMI) Body height Pain severity - 0-10 verbal numeric rating [Score] - Reported Body weight Provider Name and Address Organization Details Last Updated DateTime 01/29/2022 35 kg/m2 172.72 cm 0 338787.25 g Not Available [facility] 07/17/2022 02:42:00 Date Recorded Body height Provider Name an d Address Organization Details Last Updated DateTime 05/10/2022 172.72 cm Not Available [facility] 02:41:56 Social History Question Answer Notes LastModified by [employer] Details LastModified Time Tobacco Smoking Status Former Smoker quit 2017 Not Available [facility] 07/17/2022 02:30:06 What Is Your Level Of Caffeine Consumption? Moderate [id number] Information not available 07/17/2022 In The 14 Days Before Symptom Onset, Have You Had Close Contact With A Laboratory-confir med COVID-19 While That Case Was Ill? No [id number] Information not available 07/17/2022 In The 14 Days Before Symptom Onset, Have You Had Close Contact With A Person Who Is Under Investigation For COVID-19 While That Person Was Ill? No [id number] Information not available 07/17/2022 When Did You Quit Smoking? 1-5yearssinc elastcigaret te [id number] Information not available 07/17/2022 What Was The Date Of Your Most Recent Tobacco Screening? 09/07/2021 [id number] Information not available 07/17/2022 Do You Have Any Pets? Yes [id number] Information not available 07/17/2022 At What Age Did You Start Smoking Tobacco? 18 [id number] Information not available 07/17/2022 How Much Tobacco Do You Smoke? 1 PPD [id number] Information not available 07/17/2022 Have You Recently Traveled Abroad? No [id number] Information not available 07/17/2022 Sex: Unknown Functional Status Question Answer Note LastModified by Organizat ion Details LastModified Time Do you use any illicit or recreational drugs? No [id number] Information not available 07/17/2022 What is your level of alcohol consumption? None [id number] Information not available 07/17/2022 Do you or have you ever used smokeless tobacco? Never used smokeless tobacco [id number] Information not available 07/17/2022 Do you or have you ever used e-cigarettes or vape? Never used electronic cigarettes [id number] Information not available 07/17/2022 Mental Status None recorded. Family History Nothing Reported. Medical History Condition Response BLINDNESS N KIDNEY STONES N MRSA N CARPAL TUNNEL SYNDROME N LUNG DISEASE/DISORDER N HISTORY OF DRUG ABUSE N RADIATION / CHEMOTHERAPY N COPD Y SPORTS INJURY N ANKLE PAIN N BLOOD DISEASES N SCHIZOPHRENIA N SHINGLES N SHOULDER PAIN N DEPRESSION (INCLUDING POST ) N BOWEL PROBLEMS N STROKE/TIA N ULCERS N KNEE PAIN N BENIGN PROSTATIC HYPERPLASIA N OBESITY N GERD/NAUSEA N ANEURYSM N URINARY/BLADDER/KIDNEY PROBLEMS N CORONARY ARTERY DISEASE (CAD) N ADDICTION CONCERNS N USE OF BLOOD THINNERS N SKIN PROBLEMS N EMPHYSEMA N MUSCLE,JOINT OR BONE PROBLEMS N DVT N STOMACH ULCERS N BLOOD CLOTS N USE OF NSAIDS N CONCUSSION OR SPINAL TRAUMA N NEUROPATHY N AIDS/HIV N FRACTURES N HYPERTENSION N ELBOW PAIN N TOURETTE'S N Metal allergy N ANXIETY DISORDER N BLOOD TRANSFUSION N ANEMIA/BLOOD DISORDER N BIPOLAR DISORDER N BRONCHITIS N OSTEOARTHRITIS N TUBERCULOSIS N FOOT PROBLEM N HEART VALVE DISORDERS N ALLERGIES/HAYFEVER N SOFT TISSUE INJURY N INFECTIOUS DISEASE N HEART ARRHYTHMIA N INSOMNIA N HIGH CHOLESTEROL / HYPERLIPIDEMIA N RHEUMATOID ARTHRITIS N EDEMA N CHRONIC PAIN SYNDROME N CAROTID BLOCKAGE N BACK / NECK PROBLEMS N HAVE YOU BEEN HOSPITALIZED OR SEEN IN [facility] ER IN THE PAST YEAR ? N BURSITIS N HERNIATED DISC N DIALYSIS N FIBROMYALGIA N OSTEOPOROSIS N ARTHRITIS N NO SIGNIFICANT PAST MEDICAL HISTORY N PERIPHERAL NEUROPATHY N DIABETES, TYPE N HEARTBURN / REFLUX N HEPATITIS / LIVER DISEASE N GOUT N ALZHEIMER'S DISEASE N SLEEP DISORDER N HERPES N HEADACHES/MIGRAINES N SEIZURES/EPILEPSY N VASCULAR DISEASE N Blood Disorder N HIP PAIN N DIZZINESS N HEAD TRAUMA OR INJURY N HEART DISEASE/HEART PROBLEMS N MULTIPLE SCLEROSIS N CANCER: SPECIFY Y CARDIAC ARRHYTHMIA N ANESTHESIA COMPLICATIONS N ATRIAL FIBRILLATION N AUTOIMMUNE DISEASE N Gynecological HistoryNo gynecological history recorded. Obstetrics History GPAL:G 0 P 0 0 0 0 Immunizations Vaccine Type Date Status Note Provider Nam e and Address Organization Details Recorded Time COVID-19, mRNA, LNP-S, PF, 30 mcg/0.3 mL dose 1 completed Not Available [facility] 07/17/2022 02:53:11 COVID-19, mRNA, LNP-S, PF, 30 mcg/0.3 mL dose 1 completed Not Available [facility] 07/17/2022 02:53:11 Influenza, high-dose, trivalent, PF 4 completed Not Available [facility] 07/17/2022 02:53:11 pneumococcal polysaccharide PPV23 0 completed Not Available [facility] 07/17/2022 02:53:11 Influenza, split virus, quadrivalent, preservative 0 completed Not Available [facility] 07/17/2022 02:53:12 Influenza, split virus, quadrivalent, PF 9 completed Not Available [facility] 07/17/2022 02:53:12 pneumococcal polysaccharide PPV23 9 completed Not Available [facility] 07/17/2022 02:53:12 Hep A, adult 5 completed Not Available [facility] 07/17/2022 02:53:12 Hep A, adult 4 completed Not Available [facility] 07/17/2022 02:53:12 COVID-19, mRNA, LNP-S, PF, 30 mcg/0.3 mL dose, ashli-sucrose 3 completed MALLORY Gerardo PA [employer] 02/14/2023 15:58:54 Past Encounters Encounter ID Performer Location Encounter Start Date Encounter Closed Date Diagnosis/Indication Diagnosis SNOMED-CT Code Diagnosis ICD10 Code Diagnosis IMO Codes Diagnosis Note [id number] [facility] [address] [place] [address] 10/18/2020 00:00:00 10/18/2020 20:09:11 [id number] [facility] [address] [place] [address] 03/06/2021 00:00:00 03/06/2021 17:01:05 [id number] [facility] [address] [place] [address] 06/05/2021 00:00:00 06/05/2021 15:29:18 [id number] [facility] [address] [place], [place] [address] 09/07/2021 00:00:00 09/07/2021 16:40:50 [id number] [facility] [place] [address] [place], [place] [address] 01/08/2022 00:00:00 01/08/2022 14:41:10 [id number] Omi Jackson MD [facility] [address] [place], [place] [address] 01/14/2022 00:00:00 01/14/2022 17:39:16 [id number] Cirilo Jenkins MD [facility] [address] [place], [place] [address] 01/29/2022 00:00:00 01/29/2022 16:44:57 [id number] ALDA Dimas [facility] [place] [address] [place], [place] [address] 05/10/2022 00:00:00 05/10/2022 15:21:51 [id number] Cirilo Jenkins MD [facility] [address] [place] [place], [place] [address] 11/27/2022 15:47:25 11/27/2022 16:33:15 Pain of right hand 1072711629 79357 M79.641 [id number] ALDA Dimas [facility] [place] [address] [place], [place] [address] 12/11/2022 13:59:07 12/11/2022 14:37:49 Obstructive sleep apnea syndrome 43943958 G47.33 Home sleep study with AHI 9In lab titration to best pressure BIPAP She is not using her machine R/T mask discomfort Order for virtual mask fit today and all new suppliesDi scussed the risks of uncorrecte d BONILLA, including Moderate c hronic obstructive pulmonary disease 544997603 J44.9 PFT 11/2019 with FEV1 48 and DLCO 47%Repeat completed (02/2021 in chart) with no significan t changesRep eat 03/2022 with ratio 48 and FEV1 49Continue Trelegy Ellipta 100 daily Alpha-1-an titrypsin deficiency [id number] E88.01 MZ (at risk phenotype) Confirmato ry results in chart.Seru m levels have gradually dropped to 96 from 165 in August 2018.PFT results in chart, low [id number] has been evaluated by Dr West and her levels are not low enough for augmentati on therapy Solitary n odule of lung [id number] R91.[address] with [id number] nodule to lingula, stable from 06/2022 Health Concerns Section Related Observation LastModified by Organization Detai ls LastModified Time None Recorded Concern Status LastModified by Organization Details LastModified Time None Recorded Advance Directives Directive None Recorded Payers Insurance Date Sequence Insurance Name Policy Number Policy [place] Covered Member ID [place] Member ID Guarantor Name 12/14/2022 1 [employer] (POS II) [id number] Amada S Mary [id number] Amada S Mary 12/02/2022 [place] [employer] [id number] [place] [employer] Amada S Mary 07/17/2022 [place] [id number] [facility] Postal Service Amada S Mary 12/14/2022 1 [employer] (POS) [id number] Amada S Mary [id number] Amada S Mary 07/17/2022 [place] [id number] [place] [employer] Amada S Mary 12/02/2022 [place] [employer] [id number] [facility] Postal Service Amada S Mary Notes Date Note Type Note Provider Name and Address Organization Details Recorded Time 11/27/2022 text/html 57-year-old female returns to clinic concerning recurrence of ganglion cyst on the flexor tendons of her right hand. At her last visit on 01/29/2022 she had a ganglion cyst over the flexor tendon of the right long finger and received a corticosteroid injection into this. She states that this cyst resolved but has since returned. She also noticed recently that she has developed a cyst over the flexor tendon of the right ring finger as well. she states that sometimes these cysts are bigger in the morning. She denies any triggering. She denies any tenderness to these areas. MADALYN Laurent [address] [facility] [address] [address], [facility] [address], [place], [address], [employer] [facility] [employer] 11/27/2022 17:15:01 12/11/2022 text/html Norma presents today for follow up on COPD, dyspnea, oxygen dependence, BONILLA requiring BIPAP, [id number] alpha1 levels have remained stable and she has not required infusionsContinues compliance with inhaled therapyRescue MDI use is daily most daysContinues to do well and is trying to increase her activity.She is not participating in pulmonary rehabDenies cough.Not compliant with BIPAP nightly, complains of mask fit difficulty.She has not gotten a new maskDenies GERD and sinus congestionNo wheezing or night sweats.Denies hemoptysis and chest pain.A large nodule was found on CT and she has had follow up NICOLASA Dimas-STIVEN [address], [facility] [address], [place], [address], [employer] 12/11/2022 15:29:42 OBGyn Episode No OBEpisode recorded.
--- OUTSIDE RECORDS SUMMARY | 2025-05-04 18:30 | XMS_ITS | Clinical Summary ---
Author Organization [facility] Address [address] [place] [address] Phone Care Team Providers Care Track Template Maker Name Role Phone Matthew Perkins MD Primary Care Provider [phone] Allergies No known active allergies Medications ACETAMINOPHEN/CA FFEINE (EXCEDRIN PO) Take by mouth. Active CETIRIZINE HCL (ZYRTEC PO)Indications:D iffuse cystic mastopathy Take by mouth. Active aspirin (NAN) 81 mg Oral Tab Take by mouth. Active Active Problems Patient Care Coordination No te Formatting of this note migh t be different from the original. Primary Care: Matthew Perkins MD Referring Provider: Brandan Farr MD [address] [address] Other: Pt denies any family history of breast/ovarian ca Problem Noted Date Diagnosed Date Cigarette dependence 07/17/2015 Diffuse cystic mastopathy 02/27/2010 Loss of hearing Family History Medical History Relation Name Comments Stroke Maternal Aunt Lung Cancer Maternal Grandmother Cancer Paternal Grandfather brain Breast Cancer Neg Hx Ovarian Cancer Neg Hx Relation Name Status Comments Maternal Aunt Maternal Grandmother Paternal Grandfather Social History Tobacco Use Types Packs/Day Years Used Date Smoking Tobacco: Every Day Alcohol Use Standard Drinks/Week Comments Yes 0 (1 standard drink = 0.6 oz pur e alcohol) Comments No Sex and Gender Information Value Date Recorded Sex Assigned at Not on file Legal Sex Female 5:05 AM MACHINE TENDER Gender Identity Not on file Sexual Orientation Not on file Occupation Industry Job Start Date Job End Date Not on file Not on file Not on file Not on file Last Filed Vital Signs Vital Sign Reading Time Taken Comments Blood Pressure 94/66 07/22/2016 10:19 AM MACHINE TENDER Pulse 75 07/22/2016 10:19 AM MACHINE TENDER Temperature - - Respiratory Rate - - Oxygen Saturation - - Inhaled Oxygen Concentration - - Weight 72.6 kg (160 lb) 07/22/2016 10:19 AM MACHINE TENDER Height 172.7 cm (5' 8) 07/22/2016 10:19 AM MACHINE TENDER Body Mass Index 24.33 07/22/2016 10:19 AM MACHINE TENDER Plan of Treatment Health Maintenance Due Date Last Done Comments DTAP/TDAP/TD VACCINES (1 - Tdap) 10/11/1983 HPV/Cotest (21-29) 1985 CERVICAL CANCER SCREENING 1994 HPV/Cotest (30-65) 1994 PAP SMEAR 1994 COLORECTAL SCREENING 2009 Colorectal Cancer Screening 2009 FIT-DNA Q 3 years 2009 FIT/FOBT Q 1 year 2009 Flex Sig/CT Colonography Q 5 years 2009 ZOSTER VACCINE (1 of 2) 2014 BREAST CANCER SCREENING 08/28/2019 08/28/19 19, 07/28/2017, 07/22/2016, Additional history exists INFLUENZA VACCINE (#1) 2024 RSV VACCINE (60+ or ) (1 - 1-dose 75+ series) 10/11/2039 HEPATITIS B VACCINES Aged Out No long er eligible based on patient's age to complete this topic Procedures Procedure Name Priority Date/Time Associated Diagnosis Comments MAMMO 3D STEVE SCREEN BILAT W OR WO CAD Routine 08/27/2018 1:25 PM CDT Breast screening from Last 3 Months or Most Recently Relevant to Health Maintenance Results * MAMMO SCRN BILAT 3D STEVE W OR WO CAD (08/27/2018 1:25 PM CDT) Anatomical Region Laterality Modality Breast Bilateral Mammography 08/27/2018 1:25 PM CDT Impressions 08/27/2018 2:56 PM CDT IMPRESSION: 1. No concerning findings. OVERALL ASSESSMENT: BI-RADS Category 1 - Negative. RECOMMENDATIONS: 1. Recommend annual mammography. Narrative 08/27/2018 2:56 PM CDT BILATERAL SCREENING DIGITAL MAMMOGRAM WITH TOMOSYNTHESIS AND CAD DATE: 08/27/2018 1:25 PM DICTATION LOCATION: [facility] HISTORY: Routine yearly screening exam. TECHNIQUE: Low-dose full-field digital breast tomosynthesis examination was performed of both breasts with 2D and 3D acquisitions. CAD was utilized. COMPARISON: Studies dating back to 07/17/2015. BREAST COMPOSITION: Scattered fibroglandular densities. FINDINGS: No concerning dominant masses, suspicious calcifications, parenchymal asymmetries or areas of architectural distortion are identified in either breast. Procedure Note Fito Kee MD - 08/27/2018 BILATERAL SCREENING DIGITAL MAMMOGRAM WITH TOMOSYNTHESIS AND CAD DATE: 08/27/2018 1:25 PM DICTATION LOCATION: [facility] HISTORY: Routine yearly screening exam. TECHNIQUE: Low-dose full-field digital breast tomosynthesis examination was performed of both breasts with 2D and 3D acquisitions. CAD was utilized. COMPARISON: Studies dating back to 07/17/2015. BREAST COMPOSITION: Scattered fibroglandular densities. FINDINGS: No concerning dominant masses, suspicious calcifications, parenchymal asymmetries or areas of architectural distortion are identified in either breast. IMPRESSION: 1. No concerning findings. OVERALL ASSESSMENT: BI-RADS Category 1 - Negative. RECOMMENDATIONS: 1. Recommend annual mammography. Alyx Puentes MD MAMMO ORDERABLES Final Resul t from Last 3 Months or Most Recently Relevant to Health Maintenance Insurance [employer] CHOICE POS II Care Teams Track Template Maker Relationship Specialty Start Date End Date Matthew Perkins MD PCP - General Internal Medicine 06/28/13
--- OUTSIDE RECORDS SUMMARY | 2025-05-04 18:30 | XMS_ITS | Clinical Summary ---
Author Organization [employer] [facility] Address [address] [place] [address] Care Team Providers Care Tumbler Operator Name Role Phone No, Pcp SOLICITING FREIGHT AGENT Primary Care Provider Unavailabl e Immunizations Immunization Administration Dates Next Due Flucelvax Trivalent Prefilled Syringe (18+MOS) 0 01/29/2025 Social History Tobacco Use Types Packs/Day Years Used Date Smoking Tobacco: Never Assessed Comments Unknown Sex and Gender Information Value Date Recorded Sex Assigned at Not on file Legal Sex Female 11:43 PM EST Gender Identity Not on file Sexual Orientation Not on file Plan of Treatment Not on file Medical Devices Not on file Care Teams Tumbler Operator Relationship Specialty Start Date End Date No, Pcp, SOLICITING FREIGHT AGENT N/A Do not use PCP - General Family Medicine 06/11/20
--- OUTSIDE RECORDS SUMMARY | 2025-05-04 18:30 | XMS_ITS | Clinical Summary ---
Author Organization [facility] Address [address] [place] [address] Care Team Providers Care Agricultural Engineering Technologist Name Role Phone Frederick Maharaj MD Unavailable [phone] Lissett COOPER MD, Brandan Evangelista Primary Care Provid er Allergies Active Allergy Reactions Criticality Noted Date Comments Nitrofurantoin Other (See comments) Low 08/11/2023 Unknown, listed from PCM office Medications atorvastatin (LIPITOR) 20 mg tablet Take 1 tablet (20 mg total) by mouth daily 3 Active tirzepatide, weight loss, (Zepbound) 10 mg/0.5 mL solution vial Inject 0.5 mL (10 mg total) under the skin once a week 5 Active fluticasone propionate (FLONASE) 50 mcg/actuation nasal spray Administer 2 sprays into each nostril daily 16 g 11 5 12/31/19 26 Active albuterol HFA (PROVENTIL HFA,VENTOLIN HFA,PROAIR HFA) 90 mcg/actuation inhaler Inhale 2 puffs every 4 (four) hours as needed for shortness of breath 1 each 11 5 Active fluticasone-ume clidin-vilanter (Trelegy Ellipta) 200-62.5-25 mcg inhaler Inhale 1 puff daily 60 each 11 5 Active Active Problems Problem Noted Date Diagnosed Date Chronic respiratory failure with hypoxia 025 Assessment & Plan (03/03/2025 2:04 PM CDT): Continue supplemental oxygen 2 L with all activity and 2 L at night She has good use and benefit She is aware of the risks of hypoxia and hypercapnia Nodule of tongue 03/03/2025 Assessment & Plan (04/27/2025 1:19 PM BSA/AML COMPLIANCE OFFICER): Excision of anterior left tongue mass Risks and complications: Anesthesia, bleeding, infection, benign versus malignant pathology, recurrence of lesion, injury to arteries, nerves and veins, scarring and need for further treatment Assessment & Plan (03/03/2025 2:55 PM CDT): Dark and slightly elevated to left anterior tongue Will refer to ENT for further evaluation - biopsy and/or removal Acute severe exacerbation of asthma 03/03/2025 Moderate persistent asthma without complication 03/03/2025 Assessment & Plan (03/03/2025 2:07 PM CDT): Continue Trelegy Ellipta 200 It is very likely that she has overlap syndrome with COPD given her smoking history Vicky's not have peripheral eosinophilia and she does not exacerbate frequently Continue albuterol 2 puffs every 4-6 hours as needed only, we have discussed indications for use She is aware of signs and symptoms that would require earlier evaluation or change to plan of care Kqnye-4-afyrxsmvzgi deficiency 03/03/2025 Assessment & Plan (03/03/2025 2:56 PM CDT): She is MZ. Her last level was protective at greater than 100 I will plan to test her at least annually Emphysema of lung 03/03/2025 Assessment & Plan (03/03/2025 2:56 PM CDT): Continue Trelegy Ellipta 201 puff daily at the same time Albuterol as needed only, we have discussed indications for use We have discussed vaccinations She does not have frequent exacerbations She is aware of signs and symptoms that would require earlier evaluation or change to her plan of care. ANAHY positive 09/25/2022 Overview (09/30/2022): 09/2022 labs: AVISE Neg, C3 198, C4 27, Assessment & Plan (09/25/2022 2:50 PM CDT): Ms. Hernandez is a 56yo female with PMH of BONILLA, COPD/alpha 1 antitrypsin def, left shoulder with skin cancer and HLD who presents for evaluation of ANAHY 1:160 in the setting of her alpha 1 antitrypsin deficiency. Began to have dyspnea symptoms in 2017/[address] West and eventually diagnosed with COPD/AAT deficiency - uses O2 only with ambulation/activity. Does have a 20 pack yr smoking hx. Denies any inflammatory sounding joint pain. Notes her knees ache w/hx of meniscal tear and right hip causes moderate pain with hx of labral tear (told she was not a surgical candidate). Additional symptoms include swallowing difficulties, intermittent fatigue and rosacea. FH significant for sister with psoriasis and daughter with EDS. Questionable fullness of the right 2nd MCP joint and left 2nd PIP joint with mild ttp of the R 3rd PIP joint and left SI joint. No crackles or adventitious breath sounds by auscultation. Suspect ANAHY is normal variant as she demonstrates no concerning symptoms of a connective tissue disease or inflammatory arthritis. Will recheck an autoimmune panel as well as basic labs to see if she has developed any new antibodies since December. Suggested she seek a 2nd opinion for her right hip pain Return in [address] Maharaj. Encounters Date Type Department Care Team Description 04/27/2025 1:15 PM BSA/AML COMPLIANCE OFFICER Office Visit [facility] - [address] [place] [address] Dixie Grimaldo, Nodule of tongue (Primary Dx) 03/02/2025 1:00 PM CDT Office Visit [facility] at [address] [place] [address] Ale Drummond, FABY Emphysema of lung (Primary Dx); Chronic respiratory failure with hypoxia (HCC); Nodule of tongue; Pbrtq-3-iyagtqliqrh deficiency (HCC) 02/22/2025 1:49 PM CDT - 02/22/2025 11:59 PM CDT Hospital Encounter [facility] [address] [place] [address] Lung nodules Discharge Disposition: Discharge to home or self care 02/21/2025 Telephone [facility] [address] [place] [address] Alida Tierney from Last 3 Months Surgical History Surgery Date Site/Laterality Comments TONSILLECTOMY T&A as a child ULNAR NERVE TRANSPOSITION Left CARPAL TUNNEL RELEASE Bilateral SALPINGECTOMY Bilateral KNEE ARTHROSCOPY W/ MENISCAL REPAIR 05/19/2007 - 05/18/2008 ELBOW SURGERY 05/19/2010 - 05/18/2011 Medical History Medical History Date Comments No known health problems Vitamin D deficiency Hyperlipidemia Twfpc-4-fhtcwqkwbti deficiency (HCC) Obesity Raised level of immunoglobulins 09/07/2021 BONILLA (obstructive sleep apnea) 10/18/2020 Carpal tunnel syndrome Acute bronchitis Allergic rhinitis Acute bronchitis with chroni c obstructive pulmonary disease (COPD) (HCC) Moderate COPD (chronic obstructive pulmonary dis ease) (HCC) Gastroenteritis Liver cyst 12/21/2018 Shoulder joint pain Pain in limb Fatigue Dyspnea Abdominal pain 12/21/2018 Solitary pulmonary nodule present on computed to mography of lung Dependence on supplemental oxygen Pain in right hip 01/14/2022 Pain in right hand 11/27/2022 Social History Tobacco Use Types Packs/Day Years Used Date Smoking Tobacco: Former Cigarettes 2017 Smokeless Tobacco: Never Tobacco Cessation:Counseling Given: Not Answered Alcohol Use Standard Drinks/Week Comments Yes 4 (1 standard drink = 0.6 oz pur e alcohol) AUDIT-C Answer Date Recorded Q1: How often do you have a drink containing alcohol? 4 or more times a week 03/02/2025 Q2: How many drinks containi ng alcohol do you have on a typical day when you are drinking? 1 or 2 Q3: How often do you have si x or more drinks on one occasion? Never 03/02/2025 Comments Unknown Sex and Gender Information Value Date Recorded Sex Assigned at Not on file Legal Sex Female 10:23 AM CDT Gender Identity Female 03/24/2018 10:30 AM BSA/AML COMPLIANCE OFFICER Sexual Orientation Not on file Last Filed Vital Signs Vital Sign Reading Time Taken Comments Blood Pressure 102/60 04/27/2025 12:55 PM BSA/AML COMPLIANCE OFFICER Pulse 87 04/27/2025 12:55 PM BSA/AML COMPLIANCE OFFICER Temperature 36.6 C (97.8 F) 03/02/2025 12:57 PM CDT Respiratory Rate 18 04/27/2025 12:55 PM BSA/AML COMPLIANCE OFFICER Oxygen Saturation 95% 04/27/2025 12:55 PM BSA/AML COMPLIANCE OFFICER Inhaled Oxygen Concentration - - Weight 82.6 kg (182 lb) 04/27/2025 12:55 PM BSA/AML COMPLIANCE OFFICER Height 172.7 cm (5' 7.99) 04/27/2025 12:[address] Body Mass Index 27.68 04/27/2025 12:55 PM BSA/AML COMPLIANCE OFFICER Plan of Treatment Upcoming Encounters Date Type Department Care Team (Latest Contact Info) Description 05/24/2025 12:00 PM BSA/AML COMPLIANCE OFFICER Hospital Encounter [facility] [address] [place] [address] Dixie Grimaldo DO [address] [facility] [address] VIVI Olmedo [facility] [address] [place] [address] 05/24/2025 12:00 PM BSA/AML COMPLIANCE OFFICER - 05/24/2025 1:15 PM BSA/AML COMPLIANCE OFFICER Surgery [facility] [address] [place] [address] Dixie Grimaldo DO [address] [facility] [address] VIVI Olmedo [facility] [address] [place] [address] EXCISION nodule of tongue Scheduled Procedures Name Priority Associated Diagnoses Date/Ti me EXCISION NEVUS/MASS/TUMOR/LESION - FACE OR HEAD Nodule of tongue 05/24/2025 12:00 PM BSA/AML COMPLIANCE OFFICER Health Maintenance Due Date Last Done Comments Cervical Cancer Screening 1964 Colon Cancer Screening-Colonoscopy 1965 Depression Screening 1964 Hepatitis C Screening 1964 DTaP/Tdap/Td Vaccine (1 - Tdap) 10/11/1975 Hepatitis B Screening 1982 Regular Well Visit/Exam 18-64 1982 Zoster Vaccine (1 of 2) 2014 Pneumococcal vaccine <65 (2 of 2 - PCV) 04/05/2021 04/05/2020, 11/27/2018 Covid-19 Vaccine (5 - 2024-2 6 season) 2025 09/29/2021, 04/21/2021, 09/07/2020, Additional history exists Breast Cancer Screening-Mammogram 08/12/2025 08/12/2024, 08/12/2024, 08/27/2018, Additional history exists Lung Cancer Screening 02/23/2026 02/22/2025 Influenza Vaccine Completed 01/29/2025, , 03/20/2023, Additional history exists Procedures Procedure Name Priority Date/Time Associated Diagnosis Comments CT CHEST WO CONTRAST F/U LUNG SCREEN PROTOCOL Schedule Routine, Read Routine (OP Routine) 02/22/2025 2:05 PM CDT Lung nodules from Last 3 Months Results * CT Chest WO Contrast F/U Lung Screen Protocol (02/22/2025 2:05 PM CDT) Anatomical Region Laterality Modality Chest N/A Computed Tomogra phy 02/24/2025 1:27 PM CDT Narrative 02/24/2025 1:54 PM CDT EXAM DESCRIPTION: CT CHEST WO CONTRAST F/U LUNG SCREEN PROTOCOL REASON FOR STUDY: Screening CT of the chest in a former smoker with a 25 pack year smoking history. Additional history: Prior exam was characterized as a Lung rads 3 with a new pulmonary nodule in the right upper lobe measuring 0.4 cm. TECHNIQUE: Low dose CT scan of the chest was performed without intravenous contrast using helical scanning technique. The exam extends from the lung apices through the lung bases. Automatic exposure control was used as a dose optimization technique. NOTE: This study was performed for the specific purposes of lung cancer screening and is not an alternative to diagnostic chest CT. RADIATION DOSE: CT dose index volume (CTDIvol) = 1.32 mGy COMPARISON: 08/12/2024 FINDINGS: SMOKING RELATED LUNG DISEASE: There are severe emphysematous changes of lungs with scattered subsegmental atelectasis and scarring. There is mild biapical pleural thickening and scarring. There is no definite evidence of a pneumothorax. The central airways are grossly patent. There is no definite evidence of a focal consolidation or pleural effusion. There are scattered calcified granulomas noted. LUNG NODULES: There is interval decrease in size of the previously visualized new pulmonary nodule in the posterior right upper lobe measuring 0.3 cm, which previously measured 0.5 cm (axial image 77). There is a grossly stable subtle 0.4 cm pulmonary nodule in the central left upper lobe (axial image 44). CORONARY ARTERY CALCIFICATION: Not identified. OTHER: The heart size is stable. There is no definite evidence of pericardial effusion. There is dilatation of main pulmonary artery measuring up to 3.7 cm, which is concerning for pulmonary arterial hypertension. There is no definite unenhanced CT evidence of mediastinal, hilar, or axillary lymphadenopathy. There are scattered subcentimeter mediastinal lymph nodes noted with largest measuring 0.6 cm in the subcarinal region (axial image 154). The visualized portions of the bilateral adrenal glands are grossly stable and unremarkable. There is mild osteopenia with degenerative changes of the spine. IMPRESSION: 1. Interval decrease in size of previously visualized new pulmonary nodule in the posterior right upper lobe measuring 0.3 cm, which previously measured 0.5 cm, and therefore is likely benign. No definite evidence of a new suspicious pulmonary nodule. 2. Grossly stable subtle pulmonary nodule in the central left upper lobe measuring 0.4 cm. 3. Severe emphysematous changes of lungs with scattered subsegmental atelectasis and scarring. Lung-RADS category 2: Benign appearance or behavior. Recommendation: Low dose Screening CT of chest in 12 months. THIS IS AN ELECTRONICALLY VERIFIED FINAL REPORT 02/24/2025 1:54 PM - Electronically signed by Ayo Robbins D.O. PS: PS Report ID: [id number] Reading Location: [place] [address] Procedure Note Ayo Robbins DO - 02/24/2025 EXAM DESCRIPTION: CT CHEST WO CONTRAST F/U LUNG SCREEN PROTOCOL REASON FOR STUDY: Screening CT of the chest in a former smoker with a25 pack year smoking history. Additional history: Prior exam wascharacterized as a Lung rads 3 with a new pulmonary nodule in the right upper lobemeasuring 0.4 cm. TECHNIQUE: Low dose CT scan of the chest was performed without intravenous contrast using helical scanning technique. The exam extends from the lung apices through the lung bases. Automatic exposure control was used as adose optimization technique. NOTE: This study was performed for the specific purposes of lung cancer screening and is not an alternative to diagnostic chest CT. RADIATION DOSE: CT dose index volume (CTDIvol) = 1.32 mGy COMPARISON: 08/12/2024 FINDINGS: SMOKING RELATED LUNG DISEASE: There are severe emphysematous changes of lungs with scattered subsegmental atelectasis and scarring. There is mild biapical pleural thickening and scarring. There is no definite evidenceof a pneumothorax. The central airways are grossly patent. There is nodefinite evidence of a focal consolidation or pleural effusion. There arescattered calcified granulomas noted. LUNG NODULES: There is interval decrease in size of the previously visualized new pulmonary nodule in the posterior right upper lobemeasuring 0.3 cm, which previously measured 0.5 cm (axial image 77). There is a grossly stable subtle 0.4 cm pulmonary nodule in the centralleft upper lobe (axial image 44). CORONARY ARTERY CALCIFICATION: Not identified. OTHER: The heart size is stable. There is no definite evidence of pericardial effusion. There is dilatation of main pulmonary arterymeasuring up to 3.7 cm, which is concerning for pulmonary arterial hypertension. There is no definite unenhanced CT evidence of mediastinal, hilar, oraxillary lymphadenopathy. There are scattered subcentimeter mediastinal lymphnodes noted with largest measuring 0.6 cm in the subcarinal region (axial [id number]). The visualized portions of the bilateral adrenal glands are grossly stableand unremarkable. There is mild osteopenia with degenerative changes of the spine. IMPRESSION: 1. Interval decrease in size of previously visualized new pulmonarynodule in the posterior right upper lobe measuring 0.3 cm, which previouslymeasured 0.5 cm, and therefore is likely benign. No definite evidence of a new suspicious pulmonary nodule. 2. Grossly stable subtle pulmonary nodule in the central left upper lobe measuring 0.4 cm. 3. Severe emphysematous changes of lungs with scattered subsegmental atelectasis and scarring. Lung-RADS category 2: Benign appearance or behavior. Recommendation: Low dose Screening CT of chest in 12 months. THIS IS AN ELECTRONICALLY VERIFIED FINAL REPORT 02/24/2025 1:54 PM - Electronically signed by Ayo Robbins D.O. PS: PS Report ID: [id number] Reading Location: [place] [address] Elliott Michael DO IMG CT PROCEDURES Final R esult from Last 3 Months [place] [address] [employer] Care Teams Agricultural Engineering Technologist Relationship Specialty Start Date End Date Brandan Galeana II, MD [address] [place] [address] PCP - General Family Practice 04/25/23 Frederick Maharaj MD [address] [place] [address] Consulting Physician Rheumatology 07/30/22
--- OUTSIDE RECORDS SUMMARY | 2025-05-04 18:31 | XMS_ITS | Encounter Summary ---
Author Organization [facility] Address [address] [place] [address] Care Team Providers Care Assisted Living Care Manager Name Role Phone Lissett COOPER MD, Brandan Etienne Primary Care Provider Encounter Details Date Type Department Care Team (Late Contact Info) Description 12/24/2024 Aubreyt Message Enc [facility] - [place] [address] [place] [phone] Brandan Galeana II, MD [address] [place] [address] Lower back pain Social History Tobacco Use Types Packs/Day Years Used Date Smoking Tobacco: Former Cigarettes 2016 Smokeless Tobacco: Never Alcohol Use Standard Drinks/Week Comments Yes 0 (1 standard drink = 0.6 oz pur e alcohol) occ PHQ-2 Answer Date Recorded Patient Health Questionnaire-2 Score 0 06/23/2024 Comments No Sex and Gender Information Value Date Recorded Sex Assigned at Female 06/07/2024 4:05 PM SEQUINS WINDER Legal Sex Female 5:47 PM CDT Gender Identity Female 07/21/2024 2:39 PM SEQUINS WINDER Sexual Orientation Straight 07/21/2024 2: 39 PM SEQUINS WINDER documented as of this encounter Plan of Treatment Upcoming Encounters Date Type Department Care Team (Late Contact Info) Description 05/17/2025 1:00 PM SEQUINS WINDER Office Visit [facility] [address] [place] [address] Leandro Vo MD [address] [place] [address] 06/28/2025 2:40 PM SEQUINS WINDER Office Visit [facility] - [place] [address] [place] [address] Brandan Galeana II, MD [address] [place] [address] 02/24/2026 10:45 AM CDT Office Visit [facility] [phone] Ric Hightower MD [facility] [address] [place] [address] documented as of this encounter Visit Diagnoses Not on filedocumented in this encounter Additional Health Concerns Assessment Noted Time PHQ-9 Depression Total Score: 0 06/23/19 25 3:11 PM SEQUINS WINDER documented as of this encounter Care Teams Assisted Living Care Manager Relationship Specialty Start Date End Date Brandan Galeana II, MD [address] [place] [id number] PCP - General 04/17/23 documented as of this encounter
--- OUTSIDE RECORDS SUMMARY | 2025-05-04 18:31 | XMS_ITS | Clinical Summary ---
Author Organization [facility] Address [address] [place] [address] Care Team Providers Care Cheese Maker Name Role Phone Lissett COOPER MD, Maryellen Etienne Primary Care Provider Allergies Active Allergy Reactions Criticality Noted Date Comments Nitrofurantoin Unknown 07/15/2022 Medications Cholecalciferol 50 MCG (1999 UT) Tab Take 2,000 Units by mouth daily. Active OXYGEN 2 L/min by Nasal route continuous. Active albuterol sulfate HFA 108 (90 Base) MCG/ACT inhaler Inhale 2 puffs into the lungs every 6 (six) hours as needed for Wheezing. Active albuterol (PROVENTIL) (2.5 MG/3ML) 0.083% nebulizer solutionIndicati ons:Centrilobula r emphysema ([facility]) Take 3 mLs (2.5 mg total) by nebulization every 6 (six) hours as needed for Wheezing. 360 mL 3 4 Active NICOTINE MINI 4 MG LozengeIndicatio ns:Cigarette nicotine dependence without complication DISSOLVE 1 LOZENGE IN MOUTH EVERY 6 HOURS DIRECTED FOR 30 DAYS PER PACKAGE INSTRUCTIONS 360 lozenge 1 5 Active NEBULIZER/TUBING /MOUTHPIECE KIT, DME,Indications: Centrilobular emphysema ([facility]) Use as directed to nebulize albuterol every 6 hours. 1 kit 5 Active atorvastatin (LIPITOR) 20 MG tabletIndication s:Dyslipidemia TAKE 1 TABLET BY MOUTH EVERY DAY 90 tablet 3 5 Active Fluticasone-Umec lidin-Vilant (TRELEGY ELLIPTA) 200-62.5-25 MCG/ACT AEROSOL POWDER, BREATH ACTIVATEDIndicat ions:Centrilobul ar emphysema (CMS/HCC HHS/HCC),Chronic respiratory failure with hypoxia (CMS/HCC HHS/HCC) TAKE 1 PUFF BY MOUTH EVERY DAY 60 each 5 Active fluticasone propionate (FLONASE) 50 MCG/ACT nasal spray 2 sprays by Nasal route daily. 5 026 Active metoprolol succinate ER (TOPROL-XL) 25 MG 24 hr tabletIndication s:Palpitations TAKE 1/2 TABLET BY MOUTH EVERY DAY 45 tablet 3 5 Active tirzepatide (ZEPBOUND) 12.5 MG/0.5ML injectionIndicat ions:Weight Loss Inject 12.5 mg into the skin once a week. Indications: Weight Loss 2 mL 5 5 Active cyclobenzaprine (FLEXERIL) 10 MG tabletIndication s:Chronic bilateral low back pain with bilateral sciatica Take 1 tablet (10 mg total) by mouth nightly as needed for Muscle Spasms. 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/2023 Diastolic dysfunction 10/17/2022 Chronic respiratory failure with hypoxia 023 Centrilobular emphysema 12/20/2021 Cigarette nicotine dependence in remission 12/20 Environmental and seasonal allergies 12/20/2021 MAYA (dyspnea on exertion) 12/20/2021 Abnormal PFT 12/20/2021 BONILLA (obstructive sleep apnea) 12/20/2021 Physical deconditioning 12/20/2021 Encounters Date Type Department Care Team Description 03/24/2025 1:20 PM FOOD SERVICE WORKER Office Visit [facility] Family Medicine - [place] [phone] Maryellen Yang II, MD Health Maintenance Follow Up (Patient presents for health maintenance to follow up for weight) 03/24/2025 Travel 02/26/2025 Scan [facility] HEALTH INFO SRVCS Scanned, [facility] 02/12/2025 Results Follow-Up [facility] Family Medicine - [place] [phone] Maryellen Yang II, MD HEMOGLOBIN, GLYCOSYLATED, CBC W/DIFF AUTOMATED, COMPREHENSIVE METABOLIC PANEL, Additional followed-up results: 2 02/11/2025 1:30 PM CDT Office Visit [facility] [phone] Ric Hightower MD CHF (6mo) 02/11/2025 Travel from Last 3 Months Immunizations Immunization Administration Dates Next Due FLUCELVAX (ccIIV3, TRIVALENT, 0.5mL) 02/16/2024 Fluzone High Dose (IIV, triv alent, 0.5mL) 06/17/2013 Hepatitis A (Havrix [address]) 08/31/2014,2013 Influenza Adult (Generic) 03/20/2023,,03/06/2021,2019,04/02/2019,06/17/2013 PFIZER COVID-19 (12+) MRNA, LNP-S, PF, NEETU-SUCROSE, 30 MCG/0.3 ML (COMIRNATY) 02/12/2023 PFIZER COVID-19 (LEVINE CAP), MRNA, LNP-S, PF, 30 MCG/0.3 ML NEETU-SUCROSE, IM 02/12/2023 PFIZER COVID-19 BIVALENT (12 +) mRNA, LNP-S, PF, 30 MCG/0.3 ML DOSE 06/27/2022 Pneumococcal (Pneumovax 23) 04/05/2020, 9 Family History Medical History Relation Comments Alzheimer's disease Father small cell lung cancer Maternal Grandmother Hypertension Mother No Known Problems Sister 1 Fibromyalgia Sister 2 Relation Status Comments Father (Age 86) Maternal Grandfather (Age 23) Maternal Grandmother (Age 86) Mother Alive Paternal Grandfather (Age 60) Paternal Grandmother (Age 80) Sister 1 Alive Sister 2 Alive Social History Tobacco Use Types Packs/Day Years Used Date Smoking Tobacco: Former Cigarettes 2016 Smokeless Tobacco: Never Tobacco Cessation:Counseling Given: No Alcohol Use Standard Drinks/Week Comments Yes 0 (1 standard drink = 0.6 oz pur e alcohol) occ PHQ-2 Answer Date Recorded Patient Health Questionnaire-2 Score 0 06/23/2024 Comments No Sex and Gender Information Value Date Recorded Sex Assigned at Female 06/07/2024 4:05 PM FOOD SERVICE WORKER Legal Sex Female 5:47 PM CDT Gender Identity Female 07/21/2024 2:39 PM FOOD SERVICE WORKER Sexual Orientation Straight 07/21/2024 2: 39 PM FOOD SERVICE WORKER Last Filed Vital Signs Vital Sign Reading Time Taken Comments Blood Pressure 102/66 03/24/2025 1:15 PM FOOD SERVICE WORKER Pulse 79 03/24/2025 1:15 PM FOOD SERVICE WORKER Temperature 36.5 C (97.7 F) 03/24/2025 1:15 PM FOOD SERVICE WORKER Respiratory Rate 16 07/21/2024 2:39 PM FOOD SERVICE WORKER Oxygen Saturation 95% 03/24/2025 1:15 PM FOOD SERVICE WORKER Inhaled Oxygen Concentration - - Weight 81.6 kg (180 lb) 03/24/2025 1:15 PM FOOD SERVICE WORKER Height 172.7 cm (5' 8) 02/11/2025 1:41 PM CDT Body Mass Index 27.37 02/11/2025 1:41 PM CDT Plan of Treatment Upcoming Encounters Date Type Department Care Team (Late st Contact Info) Description 05/17/2025 1:00 PM FOOD SERVICE WORKER Office Visit [facility] - [address], [address] [place] [phone] Leandro Vo MD [address] [place] [address] 06/28/2025 2:40 PM FOOD SERVICE WORKER Office Visit [facility] Family Medicine - [address] [phone] Maryellen Yang II, MD [address] [place], [place] [phone] 02/24/2026 10:45 AM CDT Office Visit [facility] [phone] Ric Hightower MD [address] [place], [place] [phone] Health Maintenance Due Date Last Done Comments Cervical Cancer Screening Pap Smear (Age 30 to 64) Every 3 Years 1964 Colorectal Cancer Screening Colonoscopy (10 Years) 1964 Annual Physical 10/11/1967 Hepatitis C 1982 DTaP, Tdap and Td Vaccines (1 - Tdap) 10/11/1983 Cervical Cancer Screening Pap with HPV Testing (Age 30 to 64) Every 5 Years 1994 Cervical Cancer Screening with HPV 1994 Zoster Vaccines (1 of 2) 2014 Pneumococcal Vaccine: 50+ Years (2 of 2 - PCV) 04/05/2021 04/05/2020, 11/27/2018 RSV Immunization or 60+ Years (1 - Risk 60-74 years 1-dose series) 2024 COVID-19 Vaccine ( season) 2025 01/31/2024, 02/12/2023, 02/12/2023, Additional history exists Lung Cancer Screening 08/12/2025 08/12/2024 , 05/01/2023, 10/16/2022, Additional history exists Mammogram Screening 08/12/2026 08/12/2024, 07/13/2020, 08/27/2018, Additional history exists Hepatitis A Vaccines Completed 08/31/2014, 09/16/19 14 PHQ-2 (Physician Loco) Completed 06/23/2024 Influenza Adult Completed 01/29/2025, 01/19, 03/20/2023, Additional history exists Meningococcal B Vaccine Aged Out No l onger eligible based on patient's age to complete this topic Meningococcal Vaccine Aged Out No geetha erick eligible based on patient's age to complete this topic RSV Immunizations Under 20 Months Aged Out No longer eligible based on patient's age to complete this topic Procedures Procedure Name Priority Date/Time Associated Diagnosis Comments TSH W/REFLEX Routine 02/11/2025 2:48 PM CDT Fatigue, unspecified type LIPID PANEL Routine 02/11/2025 2:48 PM CDT Dyslipidemia COMPREHENSIVE METABOLIC PANEL Routine 02/11/2025 2:48 PM CDT Dyslipidemia CBC W/DIFF AUTOMATED Routine 02/11/2025 2:48 PM CDT Fatigue, unspecified type HEMOGLOBIN, GLYCOSYLATED Routine 02/11/2025 2:[address] LUNG SCREENING Routine 08/12/2024 2:0 7 PM CDT Cigarette nicotine dependence in remission MG SCREENING W STEVE GREGG DIGI Routine 08/12/2024 1:53 PM CDT Encounter for screening mammogram for malignant neoplasm of breast from Last 3 Months or Most Recently Relevant to Health Maintenance Results * TSH W/REFLEX (02/11/2025 2:48 PM CDT) TSH 1.20 0.40 - 4.50 mIU/L [facility] 02/11/2025 2:48 PM CDT 02/11/2025 2:49 PM CDT Narrative [facility] [place] [facility] - 02/12/2025 3:23 AM CDT FASTING:NO FASTING: NO Resulting Agency Comment Performing Organization Information: Site ID: [id number] Name: [facility] Address: [address] [address] [address] Director: Princess Gupta us Maryellen Yang II, MD LABORATORY Final R esult [facility] MD [facility] [employer] [phone], * HEMOGLOBIN, GLYCOSYLATED (02/11/2025 2:48 PM CDT) Pathologist [facility] HGB A1C 5.5 <5.7 % of total Hgb [facility] [place] Comment: For the purpose of screening for the presence of diabetes: <5.7% Consistent with the absence of diabetes 5.7-6.4% Consistent with increased risk for diabetes (prediabetes) > or =6.5% Consistent with diabetes This assay result is consistent with a decreased risk of diabetes. Currently, no consensus exists regarding use of hemoglobin A1c for diagnosis of diabetes in children. According to [place] Diabetes Association (ADA) guidelines, hemoglobin A1c <7.0% represents optimal control in non- diabetic patients. Different metrics may apply to specific patient populations. Standards of Medical Care in Diabetes(ADA). 02/11/2025 2:48 PM CDT 02/11/2025 2:49 PM CDT Narrative [facility] - 02/12/2025 3:23 AM CDT FASTING:NO FASTING: NO Resulting Agency Comment Performing Organization Information: Site ID: Name: [facility] Address: [address] [place] [phone] Director: Princess Gupta Maryellen Yang II, MD LABORATORY Final R esult Performing Organization Address City/State/[facility] Co de Phone Number MD [facility] MD [facility] [phone], * COMPREHENSIVE METABOLIC PANEL (02/11/2025 2:48 PM CDT) Pathologist [facility] GLUCOSE 88 65 - 139 mg/dL [place] Comment: Non-fasting reference interval BUN 16 7 - 25 mg/dL [place] CREATININE S/P/B 0.85 0.50 - 1.05 mg/dL [place] GFR ESTIMATE 78 > OR = 60 mL/min/1. 73m2 [place] BUN CREATININE RATIO SEE NOTE: 6 - 22 (calc) [place] Comment: Not Reported: BUN and Creatinine are within reference range. SODIUM S/P/B 143 135 - 146 mmol/L [place] POTASSIUM S/P/B 4.1 3.5 - 5.3 mmol/L [place] CHLORIDE S/P/B 105 98 - 110 mmol/L [place] CO2 32 20 - 32 mmol/L [place] CALCIUM S/P/B 9.7 8.6 - 10.4 mg/dL [place] TOTAL PROTEIN S/P/B 6.5 6.1 - 8.1 g/dL [place] ALBUMIN S/P/B 4.5 3.6 - 5.1 g/dL [place] GLOBULIN 2.0 1.9 - 3.7 g/dL (calc) [place] ALBUMIN/GLOBULIN RATIO 2.3 1.0 - 2.5 (calc) [place] BILIRUBIN TOTAL S/P/B 0.5 0.2 - 1.2 mg/dL [place] ALKALINE PHOSPHATASE S/P/B 100 37 - 153 U/L [place] AST 21 10 - 35 U/L [place] ALT 21 6 - 29 U/L [place] 02/11/2025 2:48 PM CDT 02/11/2025 2:49 PM CDT Narrative [facility] [place] - 02/12/2025 3:23 AM CDT FASTING:NO FASTING: NO Resulting Agency Comment Performing Organization Information: Site ID: Name: [facility] Address: [facility] [place] [address] Director: Princess Gupta Maryellen Yang II, MD LABORATORY Final R esult [facility] [place] [id number] [place] [phone], * LIPID PANEL (02/11/2025 2:48 PM CDT) Pathologist [facility] CHOLESTEROL 158 <200 mg/dL [place] HDL 68 > OR = 50 mg/dL [place] TRIGLYCERIDES 117 <150 mg/dL [place] LDL (CALCULATED) 70 mg/dL (calc) [place] Comment: Reference range: <100 Desirable range <100 mg/dL for primary prevention; <70 mg/dL for patients with CHD or diabetic patients with > or = 2 CHD risk factors. LDL-C is now calculated using the Rick calculation, which is a validated novel method providing better accuracy than the Friedewald equation in the estimation of LDL-C. Maxi SS et al. CAROLIN. 2013;310(19): 1546-4343 (http://education.Educents/faq/CSC684) CHOL/HDL RATIO 2.3 <5.0 (calc) [place] NON HDL CHOLESTEROL 90 <130 mg/dL (calc) [place] Comment: For patients with diabetes plus 1 major ASCVD risk factor, treating to a non-HDL-C goal of <100 mg/dL (LDL-C of <70 mg/dL) is considered a therapeutic option. 02/11/2025 2:48 PM CDT 02/11/2025 2:49 PM CDT Narrative [facility] [place] - 02/12/2025 3:23 AM CDT FASTING:NO FASTING: NO Resulting Agency Comment Performing Organization Information: Site ID: SL Name: [facility] Address: [address] [place] [address] Director: Princess Gupta Maryellen Yang II, MD LABORATORY Final R esult [facility] [place] [place] [address] [place] [address], * (ABNORMAL) CBC W/DIFF AUTOMATED (02/11/2025 2:48 PM CDT) [facility] WBC 6.4 3.8 - 10.8 Thousand/u L [place] RBC 4.97 3.80 - 5.10 Million/uL [place] HGB 14.2 11.7 - 15.5 g/dL [place] HCT 44.8 35.0 - 45.0 % [place] MCV 90.1 80.0 - 100.0 fL [place] MCH 28.6 27.0 - 33.0 pg [place] MCHC 31.7(L) 32.0 - 36.0 g/dL [place] Comment: For adults, a slight decrease in the calculated MCHC value (in the range of 30 to 32 g/dL) is most likely not clinically significant; however, it should be interpreted with caution in correlation with other red cell parameters and the patient's clinical condition. RDW 12.9 11.0 - 15.0 % [place] PLT 361 140 - 400 Thousand/u L [place] MPV 10.4 7.5 - 12.5 fL [place] ABS. NEUTROPHILS 4,224 1,500 - 7,800 cells/uL [place] ABS. LYMPHOCYTES 1,517 850 - 3,900 cells/uL [place] ABS. MONOCYTES 339 200 - 950 cells/uL [place] ABS. EOSINOPHILS 230 15 - 500 cells/uL [place] ABS. BASOPHILS 90 0 - 200 cells/uL [place] SEG NEUTROPHILS 66 % [place] LYMPHOCYTES 23.7 % [place] MONOCYTES 5.3 % [place] EOSINOPHILS 3.6 % [place] BASOPHILS 1.4 % [place] 02/11/2025 2:48 PM CDT 02/11/2025 2:49 PM CDT Narrative [facility] [place] [facility] - 02/12/2025 3:23 AM CDT FASTING:NO FASTING: NO Resulting Agency Comment Performing Organization Information: Site ID: SL [facility] Address: [address] [place] [address] Director: Princess Gupta us Maryellen Yang II, MD LABORATORY Final R esult [facility] [place] [address] [place] [address], [place] * CT LUNG SCREENING (08/12/2024 2:07 PM CDT) Anatomical Region Laterality Modality Chest Computed Tomogra phy 08/20/2024 3:30 PM CDT Narrative 08/20/2024 3:34 PM CDT [facility] [place] [address] EXAM: LUNG SCREENING LOW-DOSE CT THORAX WITHOUT CONTRAST DATE: 08/12/2024 HISTORY: Asymptomatic patient with history of smoking meeting CMS high-risk criteria for lung screening. * 58 years * 30 pack years or greater * Current smoker or have quit smoking within the last 15 years COMPARISON: CT chest without contrast on 05/01/2023 TECHNIQUE: Noncontrast, helical, low-dose CT (LDCT) chest per standard departmental protocol. Radiation dose reduction technique(s) were used. FINDINGS: Lung Screening Specific (LUNG-RADS): There are a few scattered pulmonary nodules which measure 4 mm or less. These are annotated on lung window images for ease of identification. Some of these were present on the prior examination. There is a single pulmonary nodule measuring over 4 mm (image 77) measuring just over 4 mm a new from the prior examination. Potentially Significant Incidentals (LUNG-RADS category S): None. Pulmonary Incidentals: Scattered stable areas of scarring. Mild emphysematous changes. Other Incidentals: None. IMPRESSION; 1. LUNG-RADS category 3: Positive - Indeterminate, likely benign finding requiring LDCT chest imaging follow-up. 2. LUNG-RADS category S: Negative, no new/unknown potentially significant incidental findings requiring urgent additional evaluation. 3. Other incidental findings as above. RECOMMENDATIONS: Follow-up LDCT Chest in 6 months (on or around January 2025). Thank you for choosing the [facility] Lung Screening Program. Referred By: MARYELLEN YANG II Interpreted By: Shon Huntley MD, 08/20/2024 3:30 PM Procedure Note Shon Huntley MD - 08/20/2024 [facility] [place] [address] EXAM: LUNG SCREENING LOW-DOSE CT THORAX WITHOUT CONTRAST DATE: 08/12/2024 HISTORY: Asymptomatic patient with history of smoking meeting CMShigh-risk criteria for lung screening. * 58 years * 30 pack years or greater * Current smoker or have quit smoking within the last 15 years COMPARISON: CT chest without contrast on 05/01/2023 TECHNIQUE: Noncontrast, helical, low-dose CT (LDCT) chest per standarddepartmental protocol. Radiation dose reduction technique(s) were used. FINDINGS: Lung Screening Specific (LUNG-RADS): There are a few scattered pulmonarynodules which measure 4 mm or less. These are annotated on lung windowimages for ease of identification. Some of these were present on theprior examination. There is a single pulmonary nodule measuring over 4 mm(image 77) measuring just over 4 mm a new from the prior examination. Potentially Significant Incidentals (LUNG-RADS category S): None. Pulmonary Incidentals: Scattered stable areas of scarring. Mildemphysematous changes. Other Incidentals: None. IMPRESSION; 1. LUNG-RADS category 3: Positive - Indeterminate, likely benign findingrequiring LDCT chest imaging follow-up. 2. LUNG-RADS category S: Negative, no new/unknown potentially significantincidental findings requiring urgent additional evaluation. 3. Other incidental findings as above. RECOMMENDATIONS: Follow-up LDCT Chest in 6 months (on or around January2025). Thank you for choosing the [facility] ScreeningProgram. Referred By: MARYELLEN YANG II Interpreted By: Shon Huntley MD, 08/20/2024 3:30 PM us Hi West MD CT Final Resul t * MG SCREENING W STEVE GREGG DIGI (08/12/2024 1:53 PM CDT) Anatomical Region Laterality Modality Breast Bilateral Mammography 08/12/2024 3:24 PM CDT Impressions 08/12/2024 3:26 PM CDT ===== IMPRESSION: ===== 1. Stable mammographic appearance with no new findings to suggest malignancy in either breast. Assessment: ACR BI-RADS 1 - NEGATIVE Recommendation: 1:Routine Screening Bilateral Comments: Ordered By: MARYELLEN YANG II Interpreted By: Sánchez Marroquin, 08/12/2024 3:24 PM Narrative 08/12/2024 3:26 PM CDT [facility] [place] [address] EXAMINATION: Digital bilateral screening mammogram with 3-D tomosynthesis EXAM DATE/TIME: 08/12/2024 1:39 PM REASON FOR EXAM: Screening Benign left-sided biopsy in 2006. COMPARISON: 07/28/2017. 08/27/2018. Technique: Digital screening mammography of both breasts was performed in addition to 3-D Tomosynthesis technique. This study was read with the assistance of a computer-aided detection system. Tissue density: There are scattered areas of fibroglandular density. Findings: There is no new focal asymmetry, dominant mass lesion, area of skin thickening, or cluster of suspicious appearing calcifications in either breast to suggest malignancy. us Maryellen Yang II, MD MAMMO Final R esult from Last 3 Months or Most Recently Relevant to Health Maintenance Insurance [facility]ICARE [facility] Care Teams Cheese Maker Relationship Specialty Start Date End Date Maryellen Yang II, MD [address] [place] [phone] PCP - General 04/17/23
--- OUTSIDE RECORDS SUMMARY | 2025-05-04 18:31 | XMS_ITS | Encounter Summary ---
Author Organization [facility] Address [address] [place] [address] Care Team Providers Care Public Health Microbiologist Name Role Phone Matthew Perkins MD Primary Care Provider [phone] Encounter Details Date Type Department Care Team (Late st Contact Info) Description 12/06/2004 Outpatient Historical [facility] [address] [place] [phone] Brandan Sherwood MD [address] [place] [id number] [place] [address] Social History Tobacco Use Types Packs/Day Years Used Date Smoking Tobacco: Never Assessed Comments Unknown Sex and Gender Information Value Date Recorded Sex Assigned at Not on file Legal Sex Female 5:05 AM CHARGE ACCOUNT CLERK Gender Identity Not on file Sexual Orientation Not on file documented as of this encounter Plan of Treatment Not on file documented as of this encounter Visit Diagnoses Not on filedocumented in this encounter Care Teams Public Health Microbiologist Relationship Specialty Start Date End Date Matthew Perkins MD PCP - General Internal Medicine 06/28/13 documented as of this encounter
--- OUTSIDE RECORDS SUMMARY | 2025-05-04 18:31 | XMS_ITS | Encounter Summary ---
Author Organization [facility] Address [address] [place] [address] Care Team Providers Care Millwright Supervisor Name Role Phone Lissett COOPER MD, Brandan Etienne Primary Care Provider Encounter Details Date Type Department Care Team (Late Contact Info) Description 08/04/2024 [employer] Message Enc [facility] Family Medicine - [place] [address] [place] [phone] Brandan Galeana II, MD 100 [place] [address] Zepbound 7.5 medication Social History Tobacco Use Types Packs/Day Years Used Date Smoking Tobacco: Former Cigarettes 2016 Smokeless Tobacco: Never Alcohol Use Standard Drinks/Week Comments Yes 0 (1 standard drink = 0.6 oz pur e alcohol) occ PHQ-2 Answer Date Recorded Patient Health Questionnaire-2 Score 0 06/23/2024 Comments No Sex and Gender Information Value Date Recorded Sex Assigned at Female 06/07/2024 4:05 PM SUPERVISOR COIL WINDING Legal Sex Female 5:47 PM CDT Gender Identity Female 07/21/2024 2:39 PM SUPERVISOR COIL WINDING Sexual Orientation Straight 07/21/2024 2: 39 PM SUPERVISOR COIL WINDING documented as of this encounter Plan of Treatment Upcoming Encounters Date Type Department Care Team (Late Contact Info) Description 05/17/2025 1:00 PM SUPERVISOR COIL WINDING Office Visit [facility]pec[facility] 3 [facility], [address] [place] [address] Leandro Vo MD 3 [place] [address] 06/28/2025 2:40 PM SUPERVISOR COIL WINDING Office Visit [facility] Family Medicine - [place] 100 [place] [address] Brandan Galeana II, MD 100 [place] [address] 02/24/2026 10:45 AM CDT Office Visit [facility] [phone] Ric Hightower MD Three [facility] [address] [place] [address] documented as of this encounter Visit Diagnoses Not on filedocumented in this encounter Additional Health Concerns Assessment Noted Time PHQ-9 Depression Total Score: 0 06/23/19 25 3:11 PM SUPERVISOR COIL WINDING documented as of this encounter Care Teams Millwright Supervisor Relationship Specialty Start Date End Date Brandan Galeana II, MD [address] [place] [address] PCP - General 04/17/23 documented as of this encounter
--- OUTSIDE RECORDS SUMMARY | 2025-05-04 18:31 | XMS_ITS | Encounter Summary ---
Author Organization [facility] Address [facility] [place] [address] Care Team Providers Care Meter Technician Name Role Phone Vinod Nieto MD Primary Care Provider [phone] Lissett COOPER MD, Brandan Etienne Primary Care Provider Encounter Details Date Type Department Care Team (Late st Contact Info) Description 11/13/2022 MyChart Message Enc [facility] Medical [facility] [address] [place], [place] [phone] [place] Provider Air Quality Message Social History Tobacco Use Types Packs/Day Years Used Date Smoking Tobacco: Former Cigarettes 2016 Smokeless Tobacco: Never Alcohol Use Standard Drinks/Week Comments Never 0 (1 standard drink = 0.6 oz pur e alcohol) PHQ-2 Answer Date Recorded Patient Health Questionnaire-2 Score 1 07/15/2022 Comments No Sex and Gender Information Value Date Recorded Sex Assigned at Female 06/07/2024 4:05 PM LINE OUT MAN Legal Sex Female 5:47 PM CDT Gender Identity Female 07/21/2024 2:39 PM LINE OUT MAN Sexual Orientation Straight 07/21/2024 2: 39 PM LINE OUT MAN COVID-19 Exposure Response Date Recorded In the last 10 days, have yo u been in contact with someone who was confirmed or suspected to have Coronavirus/COVID-19? No / Unsure 10/16/2022 4:03 PM CDT documented as of this encounter Plan of Treatment Upcoming Encounters Date Type Department Care Team (Late st Contact Info) Description 05/17/2025 1:00 PM LINE OUT MAN Office Visit [facility] Multispecialty Care - [facility] 3 [facility], [address] [place] [address] Leandro Vo MD 3 [place] [address] 06/28/2025 2:40 PM LINE OUT MAN Office Visit [facility] Family Medicine - [place] 100 [place] [phone] Brandan Galeana II, MD 100 [place] [address] 02/24/2026 10:45 AM CDT Office Visit [facility]-[address] [phone] Ric Hightower MD Three [facility] [address] [place] [address] documented as of this encounter Visit Diagnoses Not on filedocumented in this encounter Care Teams Meter Technician Relationship Specialty Start Date End Date Vinod Nieto MD [address] [facility] [place] [address] PCP - General INTERNAL MEDICINE 12/20/21 04/16/23 Brandan Galeana II, MD [address] [place] [address] PCP - General 04/17/23 documented as of this encounter
--- OUTSIDE RECORDS SUMMARY | 2025-05-04 18:31 | XMS_ITS | Encounter Summary ---
Author Organization [facility] Address [address] [place] [address] Care Team Providers Care Senior Android Software Engineer Name Role Phone Vinod Nieto MD Primary Care Provider [phone] Lissett COOPER MD, Brandan Etienne Primary Care Provider Encounter Details Date Type Department Care Team (Late st Contact Info) Description 11/11/2022 Abstract [facility] [address] Feroz Block [place] Social History Tobacco Use Types Packs/Day Years Used Date Smoking Tobacco: Former Cigarettes 2016 Smokeless Tobacco: Never Alcohol Use Standard Drinks/Week Comments Never 0 (1 standard drink = 0.6 oz pur e alcohol) PHQ-2 Answer Date Recorded Patient Health Questionnaire-2 Score 1 07/15/2022 Comments No Sex and Gender Information Value Date Recorded Sex Assigned at Female 06/07/2024 4:05 PM TEMPORARY ADMINISTRATIVE ASSISTANT Legal Sex Female 5:47 PM CDT Gender Identity Female 07/21/2024 2:39 PM TEMPORARY ADMINISTRATIVE ASSISTANT Sexual Orientation Straight 07/21/2024 2: 39 PM TEMPORARY ADMINISTRATIVE ASSISTANT COVID-19 Exposure Response Date Recorded In the last 10 days, have yo u been in contact with someone who was confirmed or suspected to have Coronavirus/COVID-19? No / Unsure 10/16/2022 4:03 PM CDT documented as of this encounter Plan of Treatment Upcoming Encounters Date Type Department Care Team (Late st Contact Info) Description 05/17/2025 1:00 PM TEMPORARY ADMINISTRATIVE ASSISTANT Office Visit [facility] Mult[facility]pecialty Care - [facility] 3 [facility], [address] [place] [address] Leandro Vo MD 3 [place] [address] 06/28/2025 2:40 PM TEMPORARY ADMINISTRATIVE ASSISTANT Office Visit [facility] Family Medicine - [place] 100 [place] [phone] Brandan Galeana II, MD 100 [place] [address] 02/24/2026 10:45 AM CDT Office Visit [facility]-[address] [phone] Ric Hightower MD Three [facility] [address] [place], [place] [address] documented as of this encounter Procedures Procedure Name Priority Date/Time Associated Diagnosis Comments COMPREHENSIVE METABOLIC PANEL Routine 03/13/2021 LIPID PANEL Routine 03/13/2021 CBC, MANUAL DIFF Routine 03/13/2021 THYROXINE, FREE (FT4) Routine 03/13/2021 THYROID STIM HORMONE TSH Routine 03/13/2021 VITAMIN D, 25 OH Routine 03/13/2021 documented in this encounter Results * VITAMIN D, 25 OH (03/13/2021) VITAMIN D 25 HYDROXY S/P/B 31 03/13/2021 us Default History Genericprovider LABORATORY Final Result * COMPREHENSIVE METABOLIC PANEL (03/13/2021) Pathologist [facility] SODIUM S/P/B 142 GLUCOSE 97 mg/dL AST 15 BUN 9 CREATININE S/P/B 0.91 0.5 - 1.0 CALCIUM S/P/B 9.4 POTASSIUM S/P/B 4.2 CHLORIDE S/P/B 105 ALT 14 GFR ESTIMATE 71 Narrative Resulting Agency Comment us Default History Genericprovider LABORATORY Final Result * LIPID PANEL (03/13/2021) Pathologist [facility] CHOLESTEROL 189 TRIGLYCERIDES 109 HDL 65 LDL (CALCULATED) 103 NON HDL CHOLESTEROL 124 Narrative Resulting Agency Comment us Default History Genericprovider LABORATORY Final Result * CBC, MANUAL DIFF (03/13/2021) [facility] WBC 8.5 HGB 13.8 HCT 42.3 PLT 382 Narrative Resulting Agency Comment us Default History Genericprovider LABORATORY Final Result * THYROXINE, FREE (FT4) (03/13/2021) [facility] FREE T4 1.4 Narrative Resulting Agency Comment us Default History Genericprovider LABORATORY Final Result * THYROID STIM HORMONE, TSH (03/13/2021) [facility] TSH 2.05 Narrative Resulting Agency Comment us Default History Genericprovider LABORATORY Final Result documented in this encounter Visit Diagnoses Not on filedocumented in this encounter Care Teams Senior Android Software Engineer Relationship Specialty Start Date End Date Vinod Nieto MD [address] [facility] [address] [place] [address] PCP - General INTERNAL MEDICINE 12/20/21 04/16/23 Brandan Galeana II, MD 100 [place] [address] PCP - General 04/17/23 documented as of this encounter
--- OUTSIDE RECORDS SUMMARY | 2025-05-04 18:31 | XMS_ITS | Encounter Summary ---
Author Organization [facility] Address [facility] [place] [address] Care Team Providers Care Bargeman Name Role Phone Vinod Nieto MD Primary Care Provider [phone] Lissett COOPER MD, Brandan Etienne Primary Care Provider Encounter Details Date Type Department Care Team (Late st Contact Info) Description 11/05/2022 MyChart Message Enc [facility] Mult[facility]pec[facility]ty Care - [facility] [address] [facility] [address] [place] [address] Hi West MD [address] [facility] [address] [place], [place] [phone] custodial disability forms Social History Tobacco Use Types Packs/Day Years Used Date Smoking Tobacco: Former Cigarettes 2016 Smokeless Tobacco: Never Alcohol Use Standard Drinks/Week Comments Never 0 (1 standard drink = 0.6 oz pur e alcohol) PHQ-2 Answer Date Recorded Patient Health Questionnaire-2 Score 1 07/15/2022 Comments No Sex and Gender Information Value Date Recorded Sex Assigned at Female 06/07/2024 4:05 PM METAPHYSICIST Legal Sex Female 5:47 PM CDT Gender Identity Female 07/21/2024 2:39 PM METAPHYSICIST Sexual Orientation Straight 07/21/2024 2: 39 PM METAPHYSICIST COVID-19 Exposure Response Date Recorded In the last 10 days, have yo u been in contact with someone who was confirmed or suspected to have Coronavirus/COVID-19? No / Unsure 10/16/2022 4:03 PM CDT documented as of this encounter Plan of Treatment Upcoming Encounters Date Type Department Care Team (Late st Contact Info) Description 05/17/2025 1:00 PM METAPHYSICIST Office Visit [facility] - [facility] 3 [facility], [address] [place] [address] Leandro Vo MD 3 [place] [address] 06/28/2025 2:40 PM METAPHYSICIST Office Visit [facility] Family Medicine - [place] 100 [place] [phone] Brandan Galeana II, MD [address] [place] [address] 02/24/2026 10:45 AM CDT Office Visit [facility] [address] Ric Hightower MD Three [facility] [address] [place], [place] [address] documented as of this encounter Visit Diagnoses Not on filedocumented in this encounter Care Teams Bargeman Relationship Specialty Start Date End Date Vinod Nieto MD [facility] [facility] [place] [address] PCP - General INTERNAL MEDICINE 12/20/21 04/16/23 Brandan Galeana II, MD [address] [place] [address] PCP - General 04/17/23 documented as of this encounter
--- OUTSIDE RECORDS SUMMARY | 2025-05-04 21:28 | XMS_ITS | Encounter Summary ---
Author Organization [facility] Address [address] [place] [address] Care Team Providers Care Vice President Of Brand Management Name Role Phone Lissett COOPER MD, Brandan Etienne Primary Care Provider Encounter Details Date Type Department Care Team (Late st Contact Info) Description 05/14/2024 [employer]t Message Enc [facility] Family Medicine - [place] 100 [place] [phone] Brandan Galeana II, MD 100 [place] [address] Horrible cough & congestion since [...] Sex Assigned at Female 06/07/2024 4:05 PM TEST CONDUCTOR Legal Sex Female 5:47 PM CDT Gender Identity Female 07/21/2024 2:39 PM TEST CONDUCTOR Sexual Orientation Straight 07/21/2024 2: 39 PM TEST CONDUCTOR documented as of this encounter Plan of Treatment Upcoming Encounters Date Type Department Care Team (Late st Contact Info) Description 05/17/2025 1:00 PM TEST CONDUCTOR Office Visit [facility] Mult[facility]pecialty Care - [facility] 3 [facility], [address] [place] [address] Leandro Vo MD 3 [place] [address] 06/28/2025 2:40 PM TEST CONDUCTOR Office Visit [facility] Family Medicine - [place] 100 [place] [phone] Brandan Galeana II, MD 100 [place] [address] 02/24/2026 10:45 AM CDT Office Visit [facility]-[address] [phone] Ric Hightower MD Three [facility] [address] [place] [address] documented as of this encounter Visit Diagnoses Not on filedocumented in this encounter Additional Health Concerns Assessment Noted Time PHQ-9 Depression Total Score: 6 11/03/19 24 2:09 PM CDT documented as of this encounter Care Teams Vice President Of Brand Management Relationship Specialty Start Date End Date Brandan Galeana II, MD [address] [place] [address] PCP - General 04/17/23 documented as of this encounter
--- OUTSIDE RECORDS SUMMARY | 2025-05-04 21:28 | XMS_ITS | Clinical Summary ---
Author Organization [employer] [facility] Address 1 [place] [address] Care Team Providers Care Supervisor Car And Yard Name Role Phone No, Pcp TRANSPORTATION DISPATCHER Primary Care Provider Unavailabl e Immunizations Immunization [...] Medical Devices Not on file Care Teams Supervisor Car And Yard Relationship Specialty Start Date End Date No, Pcp, TRANSPORTATION DISPATCHER N/A Do not use PCP - General Family Medicine 06/11/20
--- OUTSIDE RECORDS SUMMARY | 2025-05-04 21:28 | XMS_ITS | Encounter Summary ---
Author Organization [facility] [place] [facility] Address [facility] [place] [address] Care Team Providers Care Treatment Technician Name Role Phone Vinod Nieto MD Primary Care Provider [phone] Lissett COOPER MD, Brandan Etienne Primary Care Provider Encounter Details Date Type Department Care Team (Late st Contact Info) Description 11/05/2022 MyChart Message Enc [facility] Multispecialty Care - [facility] [address] [facility] [address] [place] [address] Hi West MD [address] [facility] [address] [place], [place] [phone] shelter disability forms Social History Tobacco Use Types Packs/Day Years Used Date Smoking Tobacco: Former Cigarettes 2016 Smokeless Tobacco: Never Alcohol Use Standard Drinks/Week Comments Never 0 (1 standard drink = 0.6 oz pur e alcohol) PHQ-2 Answer Date Recorded Patient Health Questionnaire-2 Score 1 07/15/2022 Comments No Sex and Gender Information Value Date Recorded Sex Assigned at Female 06/07/2024 4:05 PM SHIPFITTER APPRENTICE Legal Sex Female 5:47 PM CDT Gender Identity Female 07/21/2024 2:39 PM SHIPFITTER APPRENTICE Sexual Orientation Straight 07/21/2024 2: 39 PM SHIPFITTER APPRENTICE COVID-19 Exposure Response Date Recorded In the last 10 days, have yo u been in contact with someone who was confirmed or suspected to have Coronavirus/COVID-19? No / Unsure 10/16/2022 4:03 PM CDT documented as of this encounter Plan of Treatment Upcoming Encounters Date Type Department Care Team (Late st Contact Info) Description 05/17/2025 1:00 PM SHIPFITTER APPRENTICE Office Visit [facility] Mult[facility]pec[facility]ty Care - [facility] 3 [facility], [address] [place] [address] Leandro Vo MD 3 [place] [address] 06/28/2025 2:40 PM SHIPFITTER APPRENTICE Office Visit [facility] Family Medicine - [place] 100 [place] [phone] Brandan Galeana II, MD [address] [place] [address] 02/24/2026 10:45 AM CDT Office Visit [facility] [address] Ric Hightower MD Three [facility] [address] [place], [place] [address] documented as of this encounter Visit Diagnoses Not on filedocumented in this encounter Care Teams Treatment Technician Relationship Specialty Start Date End Date Vinod Nieto MD [facility] [facility] [place] [address] PCP - General INTERNAL MEDICINE 12/20/21 04/16/23 Brandan Galeana II, MD [address] [place] [id number] PCP - General 04/17/23 documented as of this encounter
--- OUTSIDE RECORDS SUMMARY | 2025-05-04 21:28 | XMS_ITS | Encounter Summary ---
Author Organization [facility] Address [address] [place] [address] Care Team Providers Care Box Bender Name Role Phone Matthew Perkins MD Primary Care Provider [phone] Encounter Details Date Type Department Care Team (Late st Contact Info) Description 02/18/2005 Outpatient [facility] Brandan Sherwood MD [address] [facility] [address] [place] [address] Social History Tobacco Use Types Packs/Day Years Used Date Smoking Tobacco: Never Assessed Comments Unknown Sex and Gender Information Value Date Recorded Sex Assigned at Not on file Legal Sex Female 5:05 AM RECYCLING OPERATOR Gender Identity Not on file Sexual Orientation Not on file documented as of this encounter Plan of Treatment Not on file documented as of this encounter Visit Diagnoses Not on filedocumented in this encounter Care Teams Box Bender Relationship Specialty Start Date End Date Matthew Perkins MD PCP - General Internal Medicine 06/28/13 documented as of this encounter
--- OUTSIDE RECORDS SUMMARY | 2025-05-04 21:28 | XMS_ITS | Encounter Summary ---
Author Organization [facility] Address [address] [place] [address] Care Team Providers Care Supply Specialist Name Role Phone Matthew Perkins MD Primary Care Provider [phone] Encounter Details Date Type Department Care Team (Latest Contact Info) Description 01/17/2005 Outpatient Historical [facility] Brandan Sherwood MD [address] [facility] [address] [place] [phone] SCREENING NEC (Primary Dx) Social History Tobacco Use Types Packs/Day Years Used Date Smoking Tobacco: Never Assessed Comments Unknown Sex and Gender Information Value Date Recorded Sex Assigned at Not on file Legal Sex Female 5:05 AM SENIOR MANUFACTURING ENGINEER Gender Identity Not on file Sexual Orientation Not on file documented as of this encounter Plan of Treatment Not on file documented as of this encounter Visit Diagnoses Diagnosis Other screening- Primary Other specified screening documented in this encounter Care Teams Supply Specialist Relationship Specialty Start Date End Date Matthew Perkins MD PCP - General Internal Medicine 06/28/13 documented as of this encounter
--- OUTSIDE RECORDS SUMMARY | 2025-05-04 21:28 | XMS_ITS | Clinical Summary ---
Author Organization [facility] [employer] Address [address] [place] [address] Care Team Providers Care Business Mail Entry Clerk Name Role Phone Vinod Nieto MD Primary Care Provider [phone] Alyx Puentes MD Unavailable [phone] Source Comments [facility] [employer],non-owned Affiliates and Associated Physician Practices is amultiple site organization consisting of ambulatory clinics and hospital sitesin [place], [place], [place] and [place]. This disclosure is being madepursuant to the Care Everywhere program and may not contain all information available regarding this patient. Last updated 18.[facility] [employer] Allergies No known active allergies Medications * Be aware that medications may not be up to date on this document. Alwaysverify current medications with the patient. albuterol HFA (PROVENTIL;VENT KYLE;PROAIR) 108 (90 Base) MCG/ACT inhaler albuterol sulfate HFA 90 mcg/actuation aerosol inhaler INHALE 2 PUFFS BY MOUTH EVERY 4 HOURS NEEDED Active atorvastatin (LIPITOR) 20 MG tablet atorvastatin 20 mg tablet Active omeprazole (PRILOSEC) 20 MG capsule omeprazole 20 mg capsule,delayed release Active TRELEGY ELLIPTA 100-62.5-25 MCG/INH INHALE 1 PUFF BY MOUTH EVERY DAY DIRECTED 0 Active Vitamin D3, cholecalciferol , 50 MCG (2000 UT) tablet Take 2,000 Units by mouth once daily Active Active Problems Patient Care Coordination No te Formatting of this note migh t be different from the original. Primary Care Provider: Vinod Nieto MD [address] [place] [address] Referring Provider: Alyx Puentes MD [address] [place] [address] No known active problems Family History Medical History Relation Name Comments Cancer - Lung Maternal Grandmother small cell Relation Name Status Comments Maternal Grandmother Social History Tobacco Use Types Packs/Day Years Used Date Smoking Tobacco: Former Cigarettes 0 Q uit: 07/13/2017 Smokeless Tobacco: Never Alcohol Use Standard Drinks/Week Comments Never 0 (1 standard drink = 0.6 oz pur e alcohol) AUDIT-C Answer Date Recorded Q1: How often do you have a drink containing alc ohol? Never 07/13/2020 Average Number of Drinks Not on file 021 Frequency of Binge Drinking Not on file 06/20 Comments No Sex and Gender Information Value Date Recorded Sex Assigned at Not on file Legal Sex Female 6:29 PM INTENSIVE CARE NURSE Gender Identity Not on file Sexual Orientation Not on file Last Filed Vital Signs Vital Sign Reading Time Taken Comments Blood Pressure - - Pulse - - Temperature 36.4 C (97.6 F) 07/13/2020 1:51 PM INTENSIVE CARE NURSE Respiratory Rate - - Oxygen Saturation - - Inhaled Oxygen Concentration - - Weight 98.9 kg (218 lb) 07/13/2020 1:51 PM INTENSIVE CARE NURSE Height 172.7 cm (5' 8) 07/13/2020 1:51 PM INTENSIVE CARE NURSE Body Mass Index 33.15 07/13/2020 1:51 PM INTENSIVE CARE NURSE Plan of Treatment Health Maintenance Due Date Last Done Comments COLOGUARD (AGES 45-75) - COL ON CA SCREENING 1964 COLON MONITORING 1964 COLONOSCOPY - COLON CA SCREENING 1964 CT COLONOGRAPHY - COLON CA SCREENING 1964 Colorectal Cancer Screening 1964 FIT - COLON CA SCREENING 1964 FLEX SIG - COLON CA SCREENING 1964 HIV SCREENING 10/11/1979 HEPATITIS C SCREENING 10/06/1982 DTAP/TDAP/TD VACCINES (1 - Tdap) 10/11/1983 PAP SMEAR 1985 PNEUMOCOCCAL VACCINE 50+ (1 of 1 - PCV) 2014 ZOSTER VACCINE (1 of 2) 2014 SCREENING FOR DIABETES 07/13/2020 MAMMOGRAM 07/13/2022 07/13/2020 DEPRESSION SCREENING 05/19/2024 COVID-19 VACCINE ( - 2024-2 6 season) 2025 INFLUENZA VACCINE (#1) 2025 0, 04/02/2019, 06/17/2013 Respiratory Syncytial Virus (RSV) Vaccine Pt: or over 60 yrs (1 - 1-dose 75+ series) 10/11/2039 HEPATITIS B VACCINE Aged Out No longe r eligible based on patient's age to complete this topic HIB VACCINE Aged Out No longer eligi ble based on patient's age to complete this topic HPV VACCINE Aged Out No longer eligi ble based on patient's age to complete this topic MENINGOCOCCAL (Group B) VACCINE SHARED DECISION-MAKING Aged Out No longer eligible based on patient's age to complete this topic MENINGOCOCCAL GROUPS A/C/Y/W VACCINE Aged Out No longer eligible b ased on patient's age to complete this topic Procedures Procedure Name Priority Date/Time Associated Diagnosis Comments MAMMO BILAT DIAGNOSTIC Routine 07/13/2020 2:43 PM INTENSIVE CARE NURSE At high risk for breast cancer Ductal carcinoma in situ (DCIS) of right breast Family history of malignant neoplasm of breast Discoloration of skin from Last 3 Months or Most Recently Relevant to Health Maintenance Results * (ABNORMAL) MAMMO BILAT DIAGNOSTIC (07/13/2020 2:43 PM INTENSIVE CARE NURSE) Anatomical Region Laterality Modality Breast Bilateral Mammography 07/13/2020 3:44 PM INTENSIVE CARE NURSE Impressions 07/13/2020 4:40 PM INTENSIVE CARE NURSE 1. There is a 5 mm mass in the right subareolar breast which most likely represents a complicated cyst, and less likely a small intraductal mass, such as a papilloma. Ultrasound-guided aspiration with possible biopsy is recommended to exclude a solid mural nodular component. The exam results and management recommendations were discussed with the patient by Dr. Jiang at the time of study completion. The referring surgeon Dr. Puentes was informed. Please see the separately dictated right breast ultrasound guided aspiration report performed today. 2. Clinical follow-up is recommended for the hyperpigmentation changes involving the right nipple. 3 There is no suspicious finding in the left breast. OVERALL FINAL ASSESSMENT: SUSPICIOUS. BI-RADS Category 4A: Low suspicion for malignancy. *Reading Radiologist: Caitlin Jiang on 07/13/2020 at 4:40 PM Narrative 07/13/2020 4:40 PM INTENSIVE CARE NURSE EXAMINATION: BILATERAL DIGITAL DIAGNOSTIC MAMMOGRAM INCLUDING CAD AND BILATERAL DIGITAL BREAST TOMOSYNTHESIS; RIGHT BREAST SONOGRAM HISTORY: 54-year-old woman with hyperpigmentation and occasional pain involving the right nipple. The patient denies nipple discharge. The patient is being seen by Dr. Puentes in the breast surgery clinic today. COMPARISON: 08/27/2018, 07/28/2017, 07/22/2016, 07/17/2015, 07/11/2014 TECHNIQUE: Full field digital mammographic views of BOTH breasts were performed, including computer aided detection (CAD) and BILATERAL digital breast tomosynthesis (DBT). Directed ultrasound evaluation of the RIGHT breast was performed. BREAST PARENCHYMAL COMPOSITION: The breasts are almost entirely fatty. MAMMOGRAM FINDINGS: In the right breast 7:00 subareolar position approximately 2 cm from the nipple, there is a new oval equal density circumscribed mass measuring 5 x 4 mm. The remainder of the right breast is unremarkable. There is no suspicious finding in the left breast. SONOGRAM FINDINGS: Targeted ultrasound of the right breast was initially performed by a trained slack line yarder and then the patient was imaged in real-time by Dr. Jiang. On directed clinical breast exam, there is mild patchy hyperpigmentation on the right nipple surface. At the 7-8:00 retroareolar position, there is 4 x 5 mm hypoechoic circumscribed mass accounting for the mammographic finding of interest. There are mild internal echoes although no definite vascular flow could be demonstrated. There is mild posterior acoustic enhancement. In real-time scanning by Dr. Jiang, there is the suggestion that the mass could be intraductal although a complicated cyst could have an identical appearance. Alyx Puentes MD MAMMO ORDERABLES Final Result from Last 3 Months or Most Recently Relevant to Health Maintenance Insurance A[employer] AETNA Care Teams Business Mail Entry Clerk Relationship Specialty Start Date End Date Vinod Nieto MD PCP - General Internal Medicine 07/05/20 Alyx Puentes MD [address] [place], [place] [address] [id number] Surgical Oncologist General Surgery 07/05/20
--- OUTSIDE RECORDS SUMMARY | 2025-05-04 21:28 | XMS_ITS | Encounter Summary ---
Author Organization [facility] Address [facility] [place] [address] Care Team Providers Care Bingo Usher Name Role Phone Lissett COOPER MD, Brandan Etienne Primary Care Provider Encounter Details Date Type Department Care Team (Late Contact Info) Description 05/10/2024 Tappxhart Message Enc [facility] Multispecialty Care - [facility] [address] [facility] [place] [address] Hi West MD [address] [place], [place] [address]vd [address] [place] [address] I have a bad cough & congestion [...] Sex Assigned at Female 06/07/2024 4:05 PM SAFE AND VAULT SERVICE MECHANIC Legal Sex Female 5:47 PM CDT Gender Identity Female 07/21/2024 2:39 PM SAFE AND VAULT SERVICE MECHANIC Sexual Orientation Straight 07/21/2024 2: 39 PM SAFE AND VAULT SERVICE MECHANIC documented as of this encounter Plan of Treatment Upcoming Encounters Date Type Department Care Team (Late st Contact Info) Description 05/17/2025 1:00 PM SAFE AND VAULT SERVICE MECHANIC Office Visit [facility] Multispecialty Care - [facility] [address] [facility], [address] [place] [address] Leandro Vo MD 3 [place] [address] 06/28/2025 2:40 PM SAFE AND VAULT SERVICE MECHANIC Office Visit [facility] Family Medicine - [place] [address] [place] [phone] Brandan Galeana II, MD [address] [place] [address] 02/24/2026 10:45 AM CDT Office Visit [facility] [address] Ric Hightower MD [address] [facility] [address] [place], [place] [address] documented as of this encounter Visit Diagnoses Not on filedocumented in this encounter Additional Health Concerns Assessment Noted Time PHQ-9 Depression Total Score: 6 11/03/19 24 2:09 PM CDT documented as of this encounter Care Teams Bingo Usher Relationship Specialty Start Date End Date Brandan Galeana II, MD [address] [place] [address] PCP - General 04/17/23 documented as of this encounter
--- OUTSIDE RECORDS SUMMARY | 2025-05-04 21:28 | XMS_ITS | Clinical Summary ---
Author Organization [facility] Address [address] [place] [address] Care Team Providers Care Thermocouple Tester Name Role Phone Frederick Maharaj MD Unavailable [phone] Lissett COOPER MD, Brandan Evangelista Primary Care [...] 03/03/2025 Assessment & Plan (04/27/2025 1:19 PM CASE CHECKER): Excision of anterior left tongue mass Risks [...] evaluation or change to plan of care Nojjl-4-jfemzuefqle deficiency 03/03/2025 Assessment & Plan (03/03/2025 2:56 [...] Department Care Team Description 04/27/2025 1:15 PM CASE CHECKER Office Visit [facility] ENT Specialists - [address] [place] [address] Dixie Grimaldo, Nodule of tongue (Primary Dx) 03/02/2025 1:00 PM CDT Office Visit [facility] Pulmonary at [address] [place] [address] Ale Drummond, FABY Emphysema of lung (Primary Dx); Chronic respiratory failure with hypoxia (HCC); Nodule of tongue; Tavgf-3-gfxiaxskwta deficiency (HCC) 02/22/2025 1:49 PM CDT - 02/22/2025 11:59 PM CDT Hospital Encounter [facility] 1 [place] [address] Lung nodules Discharge Disposition: Discharge to home or self care 02/21/2025 Telephone [facility] 1 [place] [address] Alida Tierney from Last 3 Months Surgical History Surgery Date Site/Laterality Comments TONSILLECTOMY T&A as a child ULNAR NERVE TRANSPOSITION Left CARPAL TUNNEL RELEASE Bilateral SALPINGECTOMY Bilateral KNEE ARTHROSCOPY W/ MENISCAL REPAIR 05/19/2007 - 05/18/2008 ELBOW SURGERY 05/19/2010 - 05/18/2011 Medical History Medical History Date Comments No known health problems Vitamin D deficiency Hyperlipidemia Zfdlu-4-cyigxjcwwbc deficiency (HCC) Obesity Raised level of immunoglobulins [...] CDT Gender Identity Female 03/24/2018 10:30 AM CASE CHECKER Sexual Orientation Not on file Last Filed Vital Signs Vital Sign Reading Time Taken Comments Blood Pressure 102/60 04/27/2025 12:55 PM CASE CHECKER Pulse 87 04/27/2025 12:55 PM CASE CHECKER Temperature 36.6 C (97.8 F) 03/02/2025 12:57 PM CDT Respiratory Rate 18 04/27/2025 12:55 PM CASE CHECKER Oxygen Saturation 95% 04/27/2025 12:55 PM CASE CHECKER Inhaled Oxygen Concentration - - Weight 82.6 kg (182 lb) 04/27/2025 12:55 PM CASE CHECKER Height 172.7 cm (5' 7.99) 04/27/2025 12:[address] Body Mass Index 27.68 04/27/2025 12:55 PM CASE CHECKER Plan of Treatment Upcoming Encounters Date Type Department Care Team (Latest Contact Info) Description 05/24/2025 12:00 PM CASE CHECKER Hospital Encounter [facility] Operating Room 1 [place] [address] Dixie Grimaldo DO [address] [facility] [address] [facility] [address] VIVI Olmedo [facility] [address] [place] [address] 05/24/2025 12:00 PM CASE CHECKER - 05/24/2025 1:15 PM CASE CHECKER Surgery [facility] Operating Room 1 [place] [address] Dixie Grimaldo DO [address] [facility] [facility] [address] VIVI Olmedo [facility] [address] [place] [address] EXCISION nodule of tongue Scheduled Procedures Name Priority Associated Diagnoses Date/Ti me EXCISION NEVUS/MASS/TUMOR/LESION - FACE OR HEAD Nodule of tongue 05/24/2025 12:00 PM CASE CHECKER Health Maintenance Due Date Last Done Comments [...] Ayo Robbins D.O. PS: PS Report ID: [id number] Reading Location: [place] [address] Procedure Note Ayo Robbins DO - 02/24/2025 [...] 0.6 cm in the subcarinal region (axial ). The visualized portions of the bilateral adrenal [...] Ayo Robbins D.O. PS: PS Report ID: [id number] Reading Location: [place] [address] Elliott Michael DO IMG CT PROCEDURES Final R esult from Last 3 [place] [address] AETNA SELECT AETNA MEDICARE Care Teams Thermocouple Tester Relationship Specialty Start Date End Date Brandan Galeana II, MD [address] [place] [address] PCP - General Family Practice 04/25/23 Frederick Maharaj MD [address] [place] [address] Consulting Physician Rheumatology 07/30/22
--- OUTSIDE RECORDS SUMMARY | 2025-05-04 21:28 | XMS_ITS | Encounter Summary ---
Author Organization [facility] Address [address] [place] [address] Care Team Providers Care Industrial Electrical Engineer Name Role Phone Matthew Pekrins MD Primary Care Provider [phone] Encounter Details Date Type Department Care Team (Latest Contact Info) Description 12/06/2004 Outpatient Historical [facility] Brandan Sherwood MD [address] [facility] [address] [place] [phone] SUPERVIS OTHER NORMAL PREG (Primary Dx) Social History Tobacco Use Types Packs/Day Years Used Date Smoking Tobacco: Never Assessed Comments Unknown Sex and Gender Information Value Date Recorded Sex Assigned at Not on file Legal Sex Female 5:05 AM RESOURCE PARAPROFESSIONAL Gender Identity Not on file Sexual Orientation Not on file documented as of this encounter Plan of Treatment Not on file documented as of this encounter Visit Diagnoses Diagnosis Supervision of other normal - Primary documented in this encounter Care Teams Industrial Electrical Engineer Relationship Specialty Start Date End Date Matthew Perkins MD PCP - General Internal Medicine 06/28/13 documented as of this encounter
--- OUTSIDE RECORDS SUMMARY | 2025-05-04 21:28 | XMS_ITS | Encounter Summary ---
Author Organization [facility] Address [address] [place] [address] Care Team Providers Care Discharge Specialist Name Role Phone Matthew Perkins MD Primary Care Provider [phone] Encounter Details Date Type Department Care Team (Late st Contact Info) Description 02/14/[address] [facility] Maternal and Ground Floor [address] [place] [address] Kaleigh Tristan MD [address] [place] [address] Social History Tobacco Use Types Packs/Day Years Used Date Smoking Tobacco: Never Assessed Comments Unknown Sex and Gender Information Value Date Recorded Sex Assigned at Not on file Legal Sex Female 5:05 AM BUSINESS CENTER ATTENDANT Gender Identity Not on file Sexual Orientation Not on file documented as of this encounter Plan of Treatment Not on file documented as of this encounter Visit Diagnoses Not on filedocumented in this encounter Care Teams Discharge Specialist Relationship Specialty Start Date End Date Matthew Perkins MD PCP - General Internal Medicine 06/28/13 documented as of this encounter
--- OUTSIDE RECORDS SUMMARY | 2025-05-04 21:28 | XMS_ITS | Clinical Summary ---
Author Organization [facility] Address [address] [place] [address] Phone Care Team Providers Care Float Operator Name Role Phone Matthew Perkins MD Primary Care Provider [phone] Allergies No known active allergies Medications ACETAMINOPHEN/CA FFEINE (EXCEDRIN PO) Take by mouth. Active CETIRIZINE HCL (ZYRTEC PO)Indications:D iffuse cystic mastopathy Take by mouth. Active aspirin (NAN) 81 mg Oral Tab Take by mouth. Active Active Problems Patient Care Coordination No te Formatting of this note migh t be different from the original. Primary Care: Matthew Perkins MD Referring Provider: Brandan Farr MD [address] [address] Other: Pt denies any family history of [...] on file Legal Sex Female 5:05 AM DIRECTOR OF MAINTENANCE Gender Identity Not on file Sexual Orientation Not on file Occupation Industry Job Start Date Job End Date Not on file Not on file Not on file Not on file Last Filed Vital Signs Vital Sign Reading Time Taken Comments Blood Pressure 94/66 07/22/2016 10:19 AM DIRECTOR OF MAINTENANCE Pulse 75 07/22/2016 10:19 AM DIRECTOR OF MAINTENANCE Temperature - - Respiratory Rate - - Oxygen Saturation - - Inhaled Oxygen Concentration - - Weight 72.6 kg (160 lb) 07/22/2016 10:19 AM DIRECTOR OF MAINTENANCE Height 172.7 cm (5' 8) 07/22/2016 10:19 AM DIRECTOR OF MAINTENANCE Body Mass Index 24.33 07/22/2016 10:19 AM DIRECTOR OF MAINTENANCE Plan of Treatment Health Maintenance Due Date [...] Insurance AETNA CHOICE POS II Care Teams Float Operator Relationship Specialty Start Date End Date Matthew Perkins MD PCP - General Internal Medicine 06/28/13
--- OUTSIDE RECORDS SUMMARY | 2025-05-04 21:29 | XMS_ITS | Encounter Summary ---
Author Organization [facility] Address [address] [place] [address] Care Team Providers Care E Commerce Manager Name Role Phone Matthew Perkins MD Primary Care Provider [phone] Encounter Details Date Type Department Care Team (Late st Contact Info) Description 12/06/2004 Outpatient Historical [facility] Maternal and Ground Floor [address] [place] [phone] Brandan Sherwood MD [address] [place] [address] [place] [address] Social History Tobacco Use Types Packs/Day Years Used Date Smoking Tobacco: Never Assessed Comments Unknown Sex and Gender Information Value Date Recorded Sex Assigned at Not on file Legal Sex Female 5:05 AM SENIOR CREDIT OFFICER Gender Identity Not on file Sexual Orientation Not on file documented as of this encounter Plan of Treatment Not on file documented as of this encounter Visit Diagnoses Not on filedocumented in this encounter Care Teams E Commerce Manager Relationship Specialty Start Date End Date Matthew Perkins MD PCP - General Internal Medicine 06/28/13 documented as of this encounter
--- OUTSIDE RECORDS SUMMARY | 2025-05-04 21:29 | XMS_ITS | Encounter Summary ---
Author Organization [facility] Address [address] [place] [address] Care Team Providers Care Legend Maker Name Role Phone Lissett COOPER MD, Brandan Etienne Primary Care Provider Encounter Details Date Type Department Care Team (Late Contact Info) Description 08/04/2024 [employer]t Message Enc [facility] Family Medicine - [employer] [address] [place] [phone] Brandan Galeana II, MD [address] [place] [address] Zepbound 7.5 medication Social History [...] Sex Assigned at Female 06/07/2024 4:05 PM AUTHORIZATION REPRESENTATIVE Legal Sex Female 5:47 PM CDT Gender Identity Female 07/21/2024 2:39 PM AUTHORIZATION REPRESENTATIVE Sexual Orientation Straight 07/21/2024 2: 39 PM AUTHORIZATION REPRESENTATIVE documented as of this encounter Plan of Treatment Upcoming Encounters Date Type Department Care Team (Late Contact Info) Description 05/17/2025 1:00 PM AUTHORIZATION REPRESENTATIVE Office Visit [facility] [address] [facility], [address] [place] [address] Leandro Vo MD [address] [place] [address] 06/28/2025 2:40 PM AUTHORIZATION REPRESENTATIVE Office Visit [facility] Family Medicine - [employer] [address] [place] [address] Brandan Galeana II, MD [address] [place] [address] 02/24/2026 10:45 AM CDT Office Visit [facility]-[address] [phone] Ric Hightower MD [address] [facility] [address] [place] [address] documented as of this encounter Visit Diagnoses Not on filedocumented in this encounter Additional Health Concerns Assessment Noted Time PHQ-9 Depression Total Score: 0 06/23/19 25 3:11 PM AUTHORIZATION REPRESENTATIVE documented as of this encounter Care Teams Legend Maker Relationship Specialty Start Date End Date Brandan Galeana II, MD [address] [place] [address] PCP - General 04/17/23 documented as of this encounter
--- OUTSIDE RECORDS SUMMARY | 2025-05-04 21:29 | XMS_ITS | Encounter Summary ---
Author Organization [facility] Address [address] [place] [address] Care Team Providers Care Waste Oil Pumper Name Role Phone Vinod Nieto MD Primary Care Provider [phone] Lissett COOPER MD, Brandan Etienne Primary Care Provider Encounter Details Date Type Department Care Team (Late st Contact Info) Description 11/11/2022 Abstract [facility] [address] Feroz Block MA Social History Tobacco Use Types Packs/Day Years Used Date Smoking Tobacco: Former Cigarettes 2016 Smokeless Tobacco: Never Alcohol Use Standard Drinks/Week Comments Never 0 (1 standard drink = 0.6 oz pur e alcohol) PHQ-2 Answer Date Recorded Patient Health Questionnaire-2 Score 1 07/15/2022 Comments No Sex and Gender Information Value Date Recorded Sex Assigned at Female 06/07/2024 4:05 PM CEMENTING MACHINE OPERATOR Legal Sex Female 5:47 PM CDT Gender Identity Female 07/21/2024 2:39 PM CEMENTING MACHINE OPERATOR Sexual Orientation Straight 07/21/2024 2: 39 PM CEMENTING MACHINE OPERATOR COVID-19 Exposure Response Date Recorded In the last 10 days, have yo u been in contact with someone who was confirmed or suspected to have Coronavirus/COVID-19? No / Unsure 10/16/2022 4:03 PM CDT documented as of this encounter Plan of Treatment Upcoming Encounters Date Type Department Care Team (Late st Contact Info) Description 05/17/2025 1:00 PM CEMENTING MACHINE OPERATOR Office Visit [facility] - [facility] [address] [facility], [address] [place] [address] Leandro Vo MD 3 [place] [address] 06/28/2025 2:40 PM CEMENTING MACHINE OPERATOR Office Visit [facility] - [place] [address] [place] [phone] Brandan Galeana II, MD 100 [place] [address] 02/24/2026 10:45 AM CDT Office Visit [facility] [phone] Ric Hightower MD Three [facility] [address] [place], [place] [address] documented as of this encounter Procedures Procedure [...] Result * COMPREHENSIVE METABOLIC PANEL (03/13/2021) Pathologist [facility] SODIUM S/P/B 142 GLUCOSE 97 mg/dL AST 15 BUN 9 CREATININE S/P/B 0.91 0.5 - 1.0 CALCIUM S/P/B 9.4 POTASSIUM S/P/B 4.2 CHLORIDE S/P/B 105 ALT 14 GFR ESTIMATE 71 Narrative Resulting Agency Comment us Default History Genericprovider LABORATORY Final Result * LIPID PANEL (03/13/2021) Pathologist [facility] CHOLESTEROL 189 TRIGLYCERIDES 109 HDL 65 LDL (CALCULATED) 103 NON HDL CHOLESTEROL 124 Narrative Resulting Agency Comment us Default History Genericprovider LABORATORY Final Result * CBC, MANUAL DIFF (03/13/2021) [facility] WBC 8.5 HGB 13.8 HCT 42.3 PLT 382 Narrative Resulting Agency Comment us Default History Genericprovider LABORATORY Final Result * THYROXINE, FREE (FT4) (03/13/2021) [facility] FREE T4 1.4 Narrative Resulting Agency Comment us Default History Genericprovider LABORATORY Final Result * THYROID STIM HORMONE, TSH (03/13/2021) [facility] TSH 2.05 Narrative Resulting Agency Comment us Default History Genericprovider LABORATORY Final Result documented in this encounter Visit Diagnoses Not on filedocumented in this encounter Care Teams Waste Oil Pumper Relationship Specialty Start Date End Date Vinod Nieto MD [address] [place] [address] PCP - General INTERNAL MEDICINE 12/20/21 04/16/23 Brandan Galeana II, MD [address] [place] [address] PCP - General 04/17/23 documented as of this encounter
--- OUTSIDE RECORDS SUMMARY | 2025-05-04 21:29 | XMS_ITS | Encounter Summary ---
Author Organization [facility] Address [facility] [place] [address] Care Team Providers Care Contact Center Manager Name Role Phone Vinod Nieto MD Primary Care Provider [phone] Lissett COOPER MD, Brandan Etienne Primary Care Provider Encounter Details Date Type Department Care Team (Late st Contact Info) Description 11/13/2022 MyChart Message Enc [facility] [address] [place], [place] [phone] [place]ible [place], [facility] Provider Air Quality Message Social History [...] Sex Assigned at Female 06/07/2024 4:05 PM VP EMERGING MEDIA Legal Sex Female 5:47 PM CDT Gender Identity Female 07/21/2024 2:39 PM VP EMERGING MEDIA Sexual Orientation Straight 07/21/2024 2: 39 PM VP EMERGING MEDIA COVID-19 Exposure Response Date Recorded In the last 10 days, have yo u been in contact with someone who was confirmed or suspected to have Coronavirus/COVID-19? No / Unsure 10/16/2022 4:03 PM CDT documented as of this encounter Plan of Treatment Upcoming Encounters Date Type Department Care Team (Late st Contact Info) Description 05/17/2025 1:00 PM VP EMERGING MEDIA Office Visit [facility] - [facility] [address] [facility], [address] [place] [address] Leandro Vo MD 3 [place] [address] 06/28/2025 2:40 PM VP EMERGING MEDIA Office Visit [facility] - [place] [address] [place] [phone] Brandan Galeana II, MD 100 [place] [address] 02/24/2026 10:45 AM CDT Office Visit [facility] [phone] Ric Highotwer MD Three [facility] [address] [place] [address] documented as of this encounter Visit Diagnoses Not on filedocumented in this encounter Care Teams Contact Center Manager Relationship Specialty Start Date End Date Vinod Nieto MD [address] [place] [place] [address] PCP - General INTERNAL MEDICINE 12/20/21 04/16/23 Brandan Galeana II, MD [address] [place] [address] PCP - General 04/17/23 documented as of this encounter
--- OUTSIDE RECORDS SUMMARY | 2025-05-04 21:29 | XMS_ITS | Clinical Summary ---
Author Organization [facility] Address [address] [place] [address] Care Team Providers Care Ranch Helper Name Role Phone Lissett COOPER MD, Maryellen [...] MG/3ML) 0.083% nebulizer solutionIndicati ons:Centrilobula r emphysema ([facility]) Take 3 mLs (2.5 mg total) by nebulization every 6 (six) hours as needed for Wheezing. 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 Diastolic dysfunction 10/17/2022 Chronic respiratory failure with hypoxia 023 Centrilobular emphysema 12/20/2021 Cigarette nicotine dependence in remission 12/20 Environmental and seasonal allergies 12/20/2021 MAYA (dyspnea on exertion) 12/20/2021 Abnormal PFT 12/20/2021 BONILLA (obstructive sleep apnea) 12/20/2021 Physical deconditioning 12/20/2021 Encounters Date Type Department Care Team Description 03/24/2025 1:20 PM SHOW HOST/HOSTESS Office Visit [facility] Family Medicine - [place] [address] Maryellen Yang II, MD Health Maintenance Follow Up (Patient presents for health maintenance to follow up for weight) 03/24/2025 Travel 02/26/2025 Scan [facility] HEALTH INFO SRVCS Scanned, Doc Med Group 02/12/2025 Results Follow-Up [facility] Family Medicine - [place] [phone] Maryellen Yang II, MD HEMOGLOBIN, GLYCOSYLATED, CBC W/DIFF AUTOMATED, COMPREHENSIVE METABOLIC PANEL, Additional followed-up results: 2 02/11/2025 1:30 PM CDT Office Visit [facility] [phone] Ric Hightower MD CHF (6mo) [...] Sex Assigned at Female 06/07/2024 4:05 PM SHOW HOST/HOSTESS Legal Sex Female 5:47 PM CDT Gender Identity Female 07/21/2024 2:39 PM SHOW HOST/HOSTESS Sexual Orientation Straight 07/21/2024 2: 39 PM SHOW HOST/HOSTESS Last Filed Vital Signs Vital Sign Reading Time Taken Comments Blood Pressure 102/66 03/24/2025 1:15 PM SHOW HOST/HOSTESS Pulse 79 03/24/2025 1:15 PM SHOW HOST/HOSTESS Temperature 36.5 C (97.7 F) 03/24/2025 1:15 PM SHOW HOST/HOSTESS Respiratory Rate 16 07/21/2024 2:39 PM SHOW HOST/HOSTESS Oxygen Saturation 95% 03/24/2025 1:15 PM SHOW HOST/HOSTESS Inhaled Oxygen Concentration - - Weight 81.6 kg (180 lb) 03/24/2025 1:15 PM SHOW HOST/HOSTESS Height 172.7 cm (5' 8) 02/11/2025 1:41 PM CDT Body Mass Index 27.37 02/11/2025 1:41 PM CDT Plan of Treatment Upcoming Encounters Date Type Department Care Team (Late st Contact Info) Description 05/17/2025 1:00 PM SHOW HOST/HOSTESS Office Visit [facility] Multispecialty Care - [address], [address] [place] [phone] Leandro Vo MD 3 [place] [address] 06/28/2025 2:40 PM SHOW HOST/HOSTESS Office Visit [facility] Family [facility] - [address] [phone] Maryellen Yang II, MD 100 [place], [place] [phone] 02/24/2026 10:45 AM CDT Office Visit [facility]-[address] [phone] Ric Hightower MD [address] [facility] [address] [place], [place] [phone] Health Maintenance Due Date Last Done Comments [...] Vaccines Completed 08/31/2014, 09/16/19 14 PHQ-2 (Physician [place]) Completed 06/23/2024 Influenza Adult Completed 01/29/2025, 01/19, [...] CDT) TSH 1.20 0.40 - 4.50 mIU/L [place] 02/11/2025 2:48 PM CDT 02/11/2025 2:49 PM CDT Narrative [facility] - [place] - 02/12/2025 3:23 AM CDT FASTING:NO FASTING: NO Resulting Agency Comment Performing Organization Information: Site ID: [id number] Name: [facility] Address: [address] [address] Director: Princess Gupta us Maryellen Yang II, MD LABORATORY Final R esult [facility] [place] [address], * HEMOGLOBIN, GLYCOSYLATED (02/11/2025 2:48 PM CDT) Pathologist [facility] HGB A1C 5.5 <5.7 % of total Hgb [facility] [place] Comment: For the purpose of screening for the presence of diabetes: <5.7% Consistent with the absence of diabetes 5.7-6.4% Consistent with increased risk for diabetes (prediabetes) > or =6.5% Consistent with diabetes This assay result is consistent with a decreased risk of diabetes. Currently, no consensus exists regarding use of hemoglobin A1c for diagnosis of diabetes in children. According to [place] Diabetes Association (ADA) guidelines, hemoglobin A1c <7.0% represents optimal control in non- diabetic patients. Different metrics may apply to specific patient populations. Standards of Medical Care in Diabetes(ADA). 02/11/2025 2:48 PM CDT 02/11/2025 2:49 PM CDT Narrative [facility] [place] - 02/12/2025 3:23 AM CDT FASTING:NO FASTING: NO Resulting Agency Comment Performing Organization Information: Site ID: Name: [facility] Address: [address] [place] [address] Director: Princess Gupta Maryellen Yang II, MD LABORATORY Final R esult Performing Organization Address City/State/[facility] Co de Phone Number [place] [facility] [place] [address] [address], * COMPREHENSIVE METABOLIC PANEL (02/11/2025 2:48 PM CDT) Pathologist [facility] GLUCOSE 88 65 - 139 mg/dL [place] Comment: Non-fasting reference interval BUN 16 7 - 25 mg/dL [place] CREATININE S/P/B 0.85 0.50 - 1.05 mg/dL [place] GFR ESTIMATE 78 > OR = 60 mL/min/1. 73m2 [place] BUN CREATININE RATIO SEE NOTE: 6 - 22 (calc) [place] Comment: Not Reported: BUN and Creatinine are within reference range. SODIUM S/P/B 143 135 - 146 mmol/L [place] POTASSIUM S/P/B 4.1 3.5 - 5.3 mmol/L [place] CHLORIDE S/P/B 105 98 - 110 mmol/L [place] CO2 32 20 - 32 mmol/L [place] CALCIUM S/P/B 9.7 8.6 - 10.4 mg/dL [place] TOTAL PROTEIN S/P/B 6.5 6.1 - 8.1 g/dL [place] ALBUMIN S/P/B 4.5 3.6 - 5.1 g/dL [place] GLOBULIN 2.0 1.9 - 3.7 g/dL (calc) [place] ALBUMIN/GLOBULIN RATIO 2.3 1.0 - 2.5 (calc) [place] BILIRUBIN TOTAL S/P/B 0.5 0.2 - 1.2 mg/dL [place] ALKALINE PHOSPHATASE S/P/B 100 37 - 153 U/L [place] AST 21 10 - 35 U/L [place] ALT 21 6 - 29 U/L [place] 02/11/2025 2:48 PM CDT 02/11/2025 2:49 PM CDT Narrative [facility] [place] - 02/12/2025 3:23 AM CDT FASTING:NO FASTING: NO Resulting Agency Comment Performing Organization Information: Site ID: Name: [facility] Address: [facility] [place] [address] Director: Princess Gupta Maryellen Yang II, MD LABORATORY Final R esult [facility] [place] [place], [place] [id number] [place] [phone], * LIPID PANEL (02/11/2025 2:48 PM CDT) Pathologist [facility] CHOLESTEROL 158 <200 mg/dL [place] HDL 68 > OR = 50 mg/dL [place] TRIGLYCERIDES 117 <150 mg/dL [place] LDL (CALCULATED) 70 mg/dL (calc) [place] Comment: Reference range: <100 Desirable range <100 mg/dL for primary prevention; <70 mg/dL for patients with CHD or diabetic patients with > or = 2 CHD risk factors. LDL-C is now calculated using the Rick calculation, which is a validated novel method providing better accuracy than the Friedewald equation in the estimation of LDL-C. Maxi SS et al. CAROLIN. 2013;310(19): 3934-3558 (http://education.ZUGGI/faq/SLM111) CHOL/HDL RATIO 2.3 <5.0 (calc) [place] NON HDL CHOLESTEROL 90 <130 mg/dL (calc) [place] Comment: For patients with diabetes plus 1 major ASCVD risk factor, treating to a non-HDL-C goal of <100 mg/dL (LDL-C of <70 mg/dL) is considered a therapeutic option. 02/11/2025 2:48 PM CDT 02/11/2025 2:49 PM CDT Narrative [facility] - [place] - 02/12/2025 3:23 AM CDT FASTING:NO FASTING: NO Resulting Agency Comment Performing Organization Information: Site ID: [id number] Name: [facility] Address: [address] [place] [address] Director: Princess Gupta Maryellen Yang II, MD LABORATORY Final R esult [facility] [place] [address] [place] [address], * (ABNORMAL) CBC W/DIFF AUTOMATED (02/11/2025 2:48 PM CDT) [facility] WBC 6.4 3.8 - 10.8 Thousand/u L [place] RBC 4.97 3.80 - 5.10 Million/uL [place] HGB 14.2 11.7 - 15.5 g/dL [place] HCT 44.8 35.0 - 45.0 % [place] MCV 90.1 80.0 - 100.0 fL [place] MCH 28.6 27.0 - 33.0 pg [place] MCHC 31.7(L) 32.0 - 36.0 g/dL [place] Comment: For adults, a slight decrease in the calculated MCHC value (in the range of 30 to 32 g/dL) is most likely not clinically significant; however, it should be interpreted with caution in correlation with other red cell parameters and the patient's clinical condition. RDW 12.9 11.0 - 15.0 % [place] PLT 361 140 - 400 Thousand/u L [place] MPV 10.4 7.5 - 12.5 fL [place] ABS. NEUTROPHILS 4,224 1,500 - 7,800 cells/uL [place] ABS. LYMPHOCYTES 1,517 850 - 3,900 cells/uL [place] ABS. MONOCYTES 339 200 - 950 cells/uL [place] ABS. EOSINOPHILS 230 15 - 500 cells/uL [place] ABS. BASOPHILS 90 0 - 200 cells/uL [place] SEG NEUTROPHILS 66 % [facility] [place] LYMPHOCYTES 23.7 % [place] MONOCYTES 5.3 % [place] EOSINOPHILS 3.6 % [place] BASOPHILS 1.4 % [place] 02/11/2025 2:48 PM CDT 02/11/2025 2:49 PM CDT Narrative [facility] [place] - 02/12/2025 3:23 AM CDT FASTING:NO FASTING: NO Resulting Agency Comment Performing Organization Information: Site ID: SL [facility]: [facility] Address: [address] [place] [address] Director: Princess Gupta us Maryellen Yang II, MD LABORATORY Final R esult [facility] [place] [address] [place] [address], [place] * CT LUNG SCREENING (08/12/2024 2:07 PM CDT) Anatomical Region Laterality Modality Chest Computed Tomogra phy 08/20/2024 3:30 PM CDT Narrative 08/20/2024 3:34 PM CDT [facility] [place] [address] EXAM: LUNG SCREENING LOW-DOSE CT THORAX WITHOUT [...] January 2025). Thank you for choosing the [facility] Lung Screening Program. Referred By: MARYELLEN YANG II Interpreted By: Shon Huntley MD, 08/20/2024 3:30 PM Procedure Note Shon Huntley MD - 08/20/2024 [facility] [place] [address] EXAM: LUNG SCREENING LOW-DOSE CT THORAX WITHOUT [...] around January2025). Thank you for choosing the [facility] Lung ScreeningProgram. Referred By: MARYELLEN YANG II [...] 3:24 PM Narrative 08/12/2024 3:26 PM CDT [facility] [place] [address] EXAMINATION: Digital bilateral screening mammogram with 3-D [...] Recently Relevant to Health Maintenance Insurance MEDICARE [facility] Care Teams Ranch Helper Relationship Specialty Start Date End Date Maryellen Yang II, MD [address] [place] [id number] PCP - General 04/17/23
--- OUTSIDE RECORDS SUMMARY | 2025-05-04 21:29 | XMS_ITS | Encounter Summary ---
Author Organization [facility] Address [address] [place] [address] Care Team Providers Care Map Compiler Name Role Phone Lissett COOPER MD, Brandan Etienne Primary Care Provider Encounter Details Date Type Department Care Team (Late Contact Info) Description 12/24/2024 Make Music TVt Message Enc [facility] Family Medicine - [place] [address] [place] [phone] Brandan Galeana II, MD [address] [place] [address] Lower back pain Social History [...] Sex Assigned at Female 06/07/2024 4:05 PM HEALTH SERVICES COORDINATOR Legal Sex Female 5:47 PM CDT Gender Identity Female 07/21/2024 2:39 PM HEALTH SERVICES COORDINATOR Sexual Orientation Straight 07/21/2024 2: 39 PM HEALTH SERVICES COORDINATOR documented as of this encounter Plan of Treatment Upcoming Encounters Date Type Department Care Team (Late Contact Info) Description 05/17/2025 1:00 PM HEALTH SERVICES COORDINATOR Office Visit [facility] Multispecialty [address] [place] [address] Leandro Vo MD 3 [place] [address] 06/28/2025 2:40 PM HEALTH SERVICES COORDINATOR Office Visit [facility] Family Medicine - [place] [address] [place] [address] Brandan Galeana II, MD 100 [place] [address] 02/24/2026 10:45 AM CDT Office Visit [facility] [phone] Ric Hightower MD Three [facility] [address] [place] [address] documented as of this encounter Visit Diagnoses Not on filedocumented in this encounter Additional Health Concerns Assessment Noted Time PHQ-9 Depression Total Score: 0 06/23/19 25 3:11 PM HEALTH SERVICES COORDINATOR documented as of this encounter Care Teams Map Compiler Relationship Specialty Start Date End Date Brandan Galeana II, MD [address] [place] [phone] PCP - General 04/17/23 documented as of this encounter
--- NOTE | 2025-05-04 21:50 | ED.LOWEXIN ---
HPI - Extremity Injury (Lower) General Chief Complaint: Extremity Injury, Lower Stated Complaint: fall, L knee pain Time Seen by Provider: 05/04/25 21:04 History of Present Illness HPI Narrative: 59-year-old female with a history of previous meniscal injury and repair on the left knee presenting to the emergency department after mechanical fall. Patient states she tripped over her dog and landed on her left knee and had some pain swelling. She had applied an ice pack in feels better and able to range her knee easier now. Was otherwise in her normal state of health. No other traumatic injuries. No other complaints at this time. Related Data Home Medications ?Medication ?Instructions ?Recorded ?Confirmed ?Last Taken ?Type albuterol sulfate 90 mcg/actuation 2 inh inhalation PRN PRN Shortness 10/20/21 10/20/21 Unknown History aerosol inhaler Of Breath atorvastatin 20 mg tablet 1 tablet PO DAILY 10/20/21 10/20/21 Unknown History fluticasone fur. 100 mcg-umeclid 1 ea inhalation BID 10/20/21 10/20/21 Unknown History 62.5 mcg-vilant 25 mcg inhalat.powder (Trelegy Ellipta) nicotine (polacrilex) 4 mg buccal 1 ea PO Q6H 10/20/21 10/20/21 Unknown History mini lozenge omeprazole 40 mg capsule,delayed 1 cap PO DAILY 10/20/21 10/20/21 Unknown History release Allergies Allergy/AdvReac Type Severity Reaction Status Date / Time cephalexin AdvReac Nausea and Verified 12/13/21 16:16 Vomiting Review of Systems Review of Systems: As reviewed above in HPI All systems reviewed & are unremarkable except as noted in HPI and below PMFSH Past Medical History Medical History Arthritis R rotator cuff Oxygen dependent with exertion and sleep Torn meniscus 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 MAYA (dyspnea on exertion) Fatigue Allergic rhinitis History of tobacco abuse Chronic GERD COPD (chronic obstructive pulmonary disease) Hypercholesterolemia Surgical History Surgical History S/P hardware removal knee History of carpal tunnel surgery Status post surgical removal of both fallopian tubes History of tonsillectomy History of orthopedic surgery Family History Family History Father [id number] deficiency Social History Social History Smoking packs per day: 1 Smoking cigarettes per day: 20.0 Years smoked: 32 Smoking pack-years: 32.00 Smoking status: Former smoker Smoking end date: 06/25/17 Alcohol intake: never Substance use: never Living arrangements: with family Additional occupation/education comments: disabled Gender identity (if verbalized by the patient): Male Sexual Orientation (if Verbalized by the Patient): Straight or Heterosexual Spiritual care concerns: No Exam Narrative: GENERAL: [Well-appearing, well-nourished, and in no acute distress.] HEAD: [Normocephalic, atraumatic.] EYES: [PERRLA and EOMI.] ENT: Nares clear, no rhinorrhea or epistaxis. Mucous membranes moist. NECK: Supple. CHEST: [Clear to auscultation. No respiratory distress.] HEART: [Regular rate and rhythm]. No murmur heard. [Normal peripheral pulses.] ABDOMEN: [Soft, nondistended], [nontender], [No rigidity or guarding] EXTREMITIES: Normal range of motion of the bilateral lower extremities. No edema but she does have a small palpable effusion suprapatellar. Tenderness over the tibial tuberosity, some overlying bruising and previous surgical scar clean dry and intact. 2+ pulses distally. Warm extremity. No laxity with valgus or varus stress testing. Negative Hilaria's testing and negative grind testing. SKIN: Warm, dry, no rash. NEURO: [No focal deficits]. Alert and oriented [x3.] PSYCH: [Normal mood and affect.] Course Vital Signs Vital signs: Vital Signs Temperature 36.3 C L 05/04/25 17:24 Pulse Rate 110 H 05/04/25 17:24 Respiratory Rate 16 05/04/25 17:24 Blood Pressure 112/69 05/04/25 17:24 Pulse Oximetry 96 05/04/25 17:24 Oxygen Delivery Room Air 05/04/25 17:24 Temperature 36.3 C L 05/04/25 17:24 Pulse Rate 85 05/04/25 22:18 Respiratory Rate 16 05/04/25 22:18 Blood Pressure 128/60 05/04/25 22:18 Pulse Oximetry 94 05/04/25 22:18 Oxygen Delivery Room Air 05/04/25 17:24 MDM MDM Narrative Medical decision making narrative: 59-year-old female with a history of previous meniscal injury and repair on the left knee presenting to the emergency department after mechanical fall. Patient states she tripped over her dog and landed on her left knee and had some pain swelling. She had applied an ice pack in feels better and able to range her knee easier now. Was otherwise in her normal state of health. No other traumatic injuries. No other complaints at this time. Normal range of motion of the bilateral lower extremities. No edema but she does have a small palpable effusion suprapatellar. Tenderness over the tibial tuberosity, some overlying bruising and previous surgical scar clean dry and intact. 2+ pulses distally. Warm extremity. No laxity with valgus or varus stress testing. Negative Hilaria's testing and negative grind testing. Patient is mildly tachycardic secondary to pain but otherwise not any distress. Suspect contusion, hematoma, less likely fracture dislocation of the patella or knee. X-rays were obtained she was given tramadol and Tylenol for analgesia with good effect. X-rays unremarkable besides the effusion. Safe for discharge with regular PCP provider follow up. Differential Diagnosis Differential Diagnosis: Suspect contusion, hematoma, less likely fracture dislocation of the patella or knee. Imaging Data Radiologist's impression: ITS Impressions Knee X-Ray 05/04/25 19:56 IMPRESSION: No acute fracture or dislocation. There is a large suprapatellar joint effusion. Discharge Plan Discharge Clinical Impression: Contusion of knee, left Patient Disposition: Home Condition: Stable Instructions: Antibiotic Form, Contusion in Adults (ED), Knee Pain (ED) Additional Instructions: X-rays showed no fractures or dislocations. Evidence of some bruising and swelling from this. Take anti-inflammatories that we have prescribed for pain and swelling control. Apply ice to the area in question for the next 24-48 hours and then he can start adding and heat products. Return to normal activities as tolerate. Return with any emergencies otherwise please follow-up with regular care provider. Patient Language: Burmese Prescriptions: New ibuprofen 800 mg tablet 800 mg PO TID PRN (Reason: pain) Qty: 30 0RF acetaminophen [Tylenol Extra Strength] 500 mg tablet 1,000 mg PO TID PRN (Reason: pain) Qty: 30 0RF No Action atorvastatin 20 mg tablet 1 tablet PO DAILY omeprazole 40 mg capsule,delayed release(DR/EC) 1 cap PO DAILY albuterol sulfate 90 mcg/actuation HFA aerosol inhaler 2 inh INHALATION PRN PRN (Reason: Shortness Of Breath) nicotine (polacrilex) 4 mg mini lozenge 1 ea PO Q6H Rx Instructions: use for 30 days-prescribed 10/02/21 Trelegy Ellipta 100-62.5-25 mcg blister with device 1 ea INHALATION BID diphenhydramine HCl [Benadryl] 25 mg capsule 25 - 50 mg PO Q4-6H PRN (Reason: allergic reaction) Qty: 30 0RF cephalexin 500 mg capsule 500 mg PO Q6H Qty: 40 0RF doxycycline hyclate 100 mg capsule 100 mg PO BID Qty: 20 0RF naproxen 500 mg tablet,delayed release (DR/EC) 500 mg PO BID Qty: 14 0RF naproxen 500 mg tablet 500 mg PO BID PRN (Reason: pain) Qty: 7 0RF Follow-up/Referrals: Brandan Galeana [Other] Time of Disposition: 22:03
[2025-05-04] MEDS: traMADol HCL (*CRX) 50 MG TABLET PO (22:13)
[2025-05-04] MEDS: IBUPROFEN 400 MG TABLET 800 MG PO (22:14)
[2025-05-04 22:18] VITALS: BP 128/60; PULSE 85; RESP 16; O2SAT 94
== END 2025-05-04 22:28 | disposition home or self-care (01) ==
PROVIDERS: Emergency Provider Student in an Organized Health Care Education/Training Program
DX: S80.02XA Contusion of left knee, initial encounter (principal); J44.9 Chronic obstructive pulmonary disease, unspecified; E78.00 Pure hypercholesterolemia, unspecified; E88.01 Alpha-1-antitrypsin deficiency; K21.9 Gastro-esophageal reflux disease without esophagitis; M19.011 Primary osteoarthritis, right shoulder; Z87.891 Personal history of nicotine dependence; W01.0XXA Fall on same level from slipping, tripping and stumbling without subsequent striking against object, initial encounter
CPT/HCPCS: 73560; 99283; A9270